=== PATIENT | male | born 1955 | race Caucasian/White ===

== ENCOUNTER 2016-09-02 14:34 | Emergency (ER) | payer OTHER ==
[2016-09-02] MEDS ORDERED: KETOROLAC 30 MG/ML VIAL (J1885) As Ordered ONE (15:15)
[2016-09-02] MEDS ORDERED: METHOCARBAMOL 1,000 MG/10 ML VIAL (J2800) As Ordered ONE (15:15)
--- NOTE | 2016-09-02 16:15 | EDDOCDS ---
Physician Documentation [facility] Name: Arin Momin Age: 60 yrs Sex: Male : 1955 Arrival Date: 09/02/2016 Time: 14:34 Bed PR Private MD: NO PRIMARY PHYSICIAN, . Disposition: 09/02/16 16:07 Discharged to Home/Self Care. Impression: Intervertebral disc stenosis of neural canal of lumbar region, Low back pain, Other intervertebral disc degeneration, lumbosacral region. - Condition is Stable. - Discharge Instructions: Degenerative Disk Disease, Back Pain, Adult, Oqwf-ck-Asde. - Prescriptions for Robaxin- 750 750 mg Oral Tablet - take 1 tablet by ORAL route every 6 hours As needed; 40 tablet. etodolac 200 mg Oral Capsule - take 1 capsule by ORAL route 3 times per day; 30 capsule. - Medication Reconciliation, Local Pharmacy Hours form. - Follow up: Orthopaedics, [facility]; When: Call to arrange an appointment; Reason: Further diagnostic work-up, Recheck today's complaints, Continuance of care. - Problem is new. - Symptoms have improved. Historical: - Allergies: PENICILLINS (Rash); - Home Meds: 1. none - PMHx: none; - PSHx: none; - Social history: Smoking status: Patient uses tobacco products, current some day smoker. No barriers to communication noted, The patient speaks fluent Sinhala. - Family history: Not pertinent. - : The pt / caregiver states he / she is not on anticoagulants. Home medication list is obtained from the patient. - Exposure Risk Screening:: None identified. Vital Signs: 09/02 14:37 BP 114 / 77; Pulse 89; Resp 18 S; Temp 95.6(T); Pulse Ox 95% on R/A; Weight 122.47 kg / gr2 270 lbs (R); Height 6 ft. 2 in. (187.96 cm) (R); Pain 9/10; 16:07 BP 119 / 75; Pulse 89; Resp 18; Temp 98.2(T); Pulse Ox 94% on R/A; Pain 8/10; nb2 14:37 Body Mass Index 34.67 (122.47 kg, 187.96 cm) gr2 MDM: 15:02 Financial registration complete. lg 15:10 ketorolac 30 mg IM once ordered. btw 15:10 Robaxin 250 mg IM once ordered. btw 15:11 CT Spine, Lumbar W/o Contrast Ordered. [facility] 15:33 [facility] Payment Agreement was scanned into [employer] and attached to record. lg Administered Medications: 15:21 Drug: ketorolac 30 mg [ketorolac 30 mg/mL (1 mL) injection solution (1 mL)] Route: IM; js13 Site: left deltoid; 16:12 Follow up: Response: Pain is decreased dls 15:22 Drug: Robaxin 250 mg [Robaxin 100 mg/mL injection solution (2.5 mL)] Route: IM; Site: js13 right deltoid; 16:12 Follow up: Response: Pain is decreased dls Signatures: Dispatcher [employer] EDLA Roberta Giles, RN RN dls Daren Bass, Reg Reg lg Don Griffin PA PA btw Vickie Maxwell RN RN jc4 Vickie Hodge RN RN js13 The chart was reviewed and I authenticate all verbal orders and agree with the evaluation and treatment provided.Attachments: 15:33 [facility] Payment Agreement lg MTDD
--- NOTE | 2016-09-02 16:15 | EDDOCDS ---
Nurse's Notes [facility] Name: Arin Momin Age: 60 yrs Sex: Male : 1955 Arrival Date: 09/02/2016 Time: 14:34 Bed PR Private MD: NO PRIMARY PHYSICIAN, . Diagnosis: Intervertebral disc stenosis of neural canal of lumbar region;Low back pain;Other intervertebral disc degeneration, lumbosacral region Presentation: 09/02 14:42 Presenting complaint: Patient states: "I've been going to a chiropractor for my back, jc4 but I slipped and fell on 08/31 and my back pain became worse last night". Acute neurological deficits are not present. Mechanism of Injury: Fall from standing position. Adult Sepsis Screening: The patient does not have new or worsening altered mentation. Patient's respiratory rate is less than 22. Systolic blood pressure is greater than 100. Patient has a qSOFA score of 0- Negative Sepsis Screen. Suicide/Homicide risk assessment- the patient denies having any suicidal and/or homicidal ideations and does not present with any other emotional, behavioral or mental health complaints. Status: Patient is not a assistant service manager or dependent. Transition of care: patient was not received from another setting of care. 14:42 Acuity: GERSON Level 4 jc4 14:42 Method Of Arrival: Walkin/Carried/Asstd jc4 Triage Assessment: 14:44 General: Appears in no apparent distress. Musculoskeletal: Reports pain in back jc4 radiation to buttocks and bilateral legs. 14:44 Pain: Pain currently is 9 out of 10 on a pain scale. Pt Declines HIV testing. jc4 Historical: - Allergies: PENICILLINS (Rash); - Home Meds: 1. none - PMHx: none; - PSHx: none; - Social history: Smoking status: Patient uses tobacco products, current some day smoker. No barriers to communication noted, The patient speaks fluent Liberian. - Family history: Not pertinent. - : The pt / caregiver states he / she is not on anticoagulants. Home medication list is obtained from the patient. - Exposure Risk Screening:: None identified. Screenin:01 Screening information is obtained from the patient. Fall risk: No risks identified. js13 Assistance ADL's: requires no assistance with activities of daily living. Abuse/DV Screen: The patient / caregiver reports he/she is: not in a situation that causes fear, pain or injury. Nutritional screening: No deficits noted. Advance Directives: There is no active DNR order. home support is adequate. Assessment: 16:11 General: Appears uncomfortable, Behavior is cooperative. Awake, alert, oriented. Skin dls warm and dry. Moves all extremities. Bilateral breath sounds clear. Respirations unlabored. Abdomen soft, non-tender. No apparent distress. The patient / caregiver is instructed regarding the plan of care and ED course. Vital Signs: 14:37 BP 114 / 77; Pulse 89; Resp 18 S; Temp 95.6(T); Pulse Ox 95% on R/A; Weight 122.47 kg gr2 (R); Height 6 ft. 2 in. (187.96 cm) (R); Pain 9/10; 16:07 BP 119 / 75; Pulse 89; Resp 18; Temp 98.2(T); Pulse Ox 94% on R/A; Pain 8/10; nb2 14:37 Body Mass Index 34.67 (122.47 kg, 187.96 cm) gr2 Vitals: 14:37 Log In Time: September 02, 2016 at 14:37. gr2 ED Course: 14:35 Patient visited by Benjie Bateman. gr2 14:35 Patient moved to Waiting gr2 14:36 NO PRIMARY PHYSICIAN, . is Private Physician. gr2 14:38 Patient visited by Benjie Bateman. gr2 14:38 Patient moved to Pre RCE gr2 14:43 Triage Initiated jc4 14:46 Patient moved to Triage 1 dem1 14:49 Don Griffin PA is PHCP. btw 14:49 Sarai Diehl MD is Attending Physician. btw 15:01 Patient visited by Don Griffin PA. btw 15:01 The patient / caregiver is instructed regarding the plan of care and ED course. js13 15:01 No IV's were initiated during this patient's visit. No procedures done that require js13 assistance. 15:22 Patient moved to TR4 js13 15:33 [facility] Payment Agreement was scanned into [employer] and attached to record. lg 15:57 Patient moved to PR2 / 26 dls 16:02 Patient visited by Roberta Giles RN. dls [facility]. btw 16:08 Patient visited by Sherri Berman. nb2 16:14 Patient has correct armband on for positive identification. Bed in low position. Call dls light in reach. Administered Medications: 15:21 Drug: ketorolac 30 mg [ketorolac 30 mg/mL (1 mL) injection solution (1 mL)] Route: IM; js13 Site: left deltoid; 16:12 Follow up: Response: Pain is decreased dls 15:22 Drug: Robaxin 250 mg [Robaxin 100 mg/mL injection solution (2.5 mL)] Route: IM; Site: js13 right deltoid; 16:12 Follow up: Response: Pain is decreased dls Order Results: There are currently no results for this order. Outcome: 16:07 Discharge ordered by Provider. btw 16:12 The following High Risk Discharge criteria are identified: None. Discharged to home dls ambulatory. Condition: stable Condition: improved. Discharge instructions given to patient, Instructed on discharge instructions, follow up and referral plans. medication usage, Demonstrated understanding of instructions, medications, Pt was receptive of discharge instructions/ teaching. No special radiology studies were completed. 16:13 Discharge Assessment: Patient awake, alert and oriented x 3. No cognitive and/or dls functional deficits noted. Patient verbalized understanding of disposition instructions. patient administered narcotics - no. The following High Risk Discharge criteria are identified: None. Discharged to. Property sent home with patient. 16:14 Patient left the ED. dls Signatures: Roberta Giles RN RN dls Daren Bass, Ru Reg lg Don Griffin, INGRID PA btw Vickie Maxwell, PAMELLA RN jc4 Steve Bob Jennifer, RN RN js13 Benjie Bateman gr2 Sherri Berman nb2 MTDD
--- NOTE | 2016-09-02 17:24 | REP ---
CT study of the lumbar spine without contrast: History: Trauma. Technique: Helical scanning is acquired. 4 mm contiguous axial images are generated and viewed at bone and soft-tissue window settings. Coronal and sagittal multiplanar re-formation images are generated and reviewed. CT findings: Lumbar vertebral body heights are preserved. No fracture or collapse is seen. No malalignment is seen. There is advanced degenerative disc disease at L5- S1 with disc space narrowing and disc space calcification. Posterior disc bulging and osteophyte formation is seen. There is bony neural foraminal narrowing on the left at L5-S1. At L4-5, there is moderate central canal stenosis due to developmentally small canal and some disc bulging and facet hypertrophy. At L3-4, there is also central canal stenosis mild to moderate in degree. No disc herniation is seen. At L2-3, L1-2, and T12-L1, no significant abnormality is noted. No transverse process or other posterior element fracture is seen. Impression: Degenerative disc and facet changes at L4-5 and L5-S1. Central canal stenosis at L4-5 and L3-4. Diffuse disc bulging at L5-S1 and neural foraminal narrowing on the left . No fracture or collapse seen. Signed by Kurt Samuels MD 09/02/2016 05:35 P
--- NOTE | 2016-09-05 11:22 | EDDOCDS ---
Physician Documentation [facility] Name: Arin Momin Age: 60 yrs Sex: Male : 1955 Arrival Date: 09/02/2016 Time: 14:34 Bed PR Private MD: NO PRIMARY PHYSICIAN, . Disposition: 09/02/16 16:07 Discharged to Home/Self Care. Impression: Intervertebral disc stenosis of neural canal of lumbar region, Low back pain, Other intervertebral disc degeneration, lumbosacral region. - Condition is Stable. - Discharge Instructions: Degenerative Disk Disease, Back Pain, Adult, Nlgv-ly-Odru. - Prescriptions for Robaxin- 750 750 mg Oral Tablet - take 1 tablet by ORAL route every 6 hours As needed; 40 tablet. etodolac 200 mg Oral Capsule - take 1 capsule by ORAL route 3 times per day; 30 capsule. - Medication Reconciliation, Local Pharmacy Hours form. - Follow up: Orthopaedics, [facility]; When: Call to arrange an appointment; Reason: Further diagnostic work-up, Recheck today's complaints, Continuance of care. - Problem is new. - Symptoms have improved. Historical: - Allergies: PENICILLINS (Rash); - Home Meds: 1. none - PMHx: none; - PSHx: none; - Social history: Smoking status: Patient uses tobacco products, current some day smoker. No barriers to communication noted, The patient speaks fluent German. - Family history: Not pertinent. - : The pt / caregiver states he / she is not on anticoagulants. Home medication list is obtained from the patient. - Exposure Risk Screening:: None identified. Vital Signs: 09/02 14:37 BP 114 / 77; Pulse 89; Resp 18 S; Temp 95.6(T); Pulse Ox 95% on R/A; Weight 122.47 kg / gr2 270 lbs (R); Height 6 ft. 2 in. (187.96 cm) (R); Pain 9/10; 16:07 BP 119 / 75; Pulse 89; Resp 18; Temp 98.2(T); Pulse Ox 94% on R/A; Pain 8/10; nb2 14:37 Body Mass Index 34.67 (122.47 kg, 187.96 cm) gr2 MDM: 15:02 Financial registration complete. lg 15:10 ketorolac 30 mg IM once ordered. btw 15:10 Robaxin 250 mg IM once ordered. btw 15:11 CT Spine, Lumbar W/o Contrast Ordered. EDMS 15:33 [facility] Payment Agreement was scanned into [email or web address] and attached to record. lg 20:53 T-Sheet-- Draft Copy was scanned into [email or web address] and attached to record. klr Administered Medications: 15:21 Drug: ketorolac 30 mg [ketorolac 30 mg/mL (1 mL) injection solution (1 mL)] Route: IM; js13 Site: left deltoid; 16:12 Follow up: Response: Pain is decreased dls 15:22 Drug: Robaxin 250 mg [Robaxin 100 mg/mL injection solution (2.5 mL)] Route: IM; Site: js13 right deltoid; 16:12 Follow up: Response: Pain is decreased dls Signatures: Dispatcher [employer] EDMS Roberta Giles RN RN dls Daren Bass, Ru Reg lg Don Griffin PA PA btw Vickie Maxwell RN RN jc4 Vickie Hodge RN RN js13 Alexandria Huerta klr The chart was reviewed and I authenticate all verbal orders and agree with the evaluation and treatment provided.Attachments: 15:33 [facility] Payment Agreement lg 20:53 T-Sheet-- Draft Copy klr Chart Complete MTDD
--- NOTE | 2016-09-05 11:22 | EDDOCDS ---
Physician Documentation [facility] Name: Arin Momin Age: 60 yrs Sex: Male : 1955 Arrival Date: 09/02/2016 Time: 14:34 Bed PR Private MD: NO PRIMARY PHYSICIAN, . Disposition: 09/02/16 16:07 Discharged to Home/Self Care. Impression: Intervertebral disc stenosis of neural canal of lumbar region, Low back pain, Other intervertebral disc degeneration, lumbosacral region. - Condition is Stable. - Discharge Instructions: Degenerative Disk Disease, Back Pain, Adult, [id number]-nb-Jmtc. - Prescriptions for Robaxin- 750 750 mg Oral Tablet - take 1 tablet by ORAL route every 6 hours As needed; 40 tablet. etodolac 200 mg Oral Capsule - take 1 capsule by ORAL route 3 times per day; 30 capsule. - Medication Reconciliation, Local Pharmacy Hours form. - Follow up: Orthopaedics, [facility]; When: Call to arrange an appointment; Reason: Further diagnostic work-up, Recheck today's complaints, Continuance of care. - Problem is new. - Symptoms have improved. Historical: - Allergies: PENICILLINS (Rash); - Home Meds: 1. none - PMHx: none; - PSHx: none; - Social history: Smoking status: Patient uses tobacco products, current some day smoker. No barriers to communication noted, The patient speaks fluent Latvian. - Family history: Not pertinent. - : The pt / caregiver states he / she is not on anticoagulants. Home medication list is obtained from the patient. - Exposure Risk Screening:: None identified. Vital Signs: 09/02 14:37 BP 114 / 77; Pulse 89; Resp 18 S; Temp 95.6(T); Pulse Ox 95% on R/A; Weight 122.47 kg / gr2 270 lbs (R); Height 6 ft. 2 in. (187.96 cm) (R); Pain 9/10; 16:07 BP 119 / 75; Pulse 89; Resp 18; Temp 98.2(T); Pulse Ox 94% on R/A; Pain 8/10; nb2 14:37 Body Mass Index 34.67 (122.47 kg, 187.96 cm) gr2 MDM: 15:02 Financial registration complete. lg 15:10 ketorolac 30 mg IM once ordered. btw 15:10 Robaxin 250 mg IM once ordered. btw 15:11 CT Spine, Lumbar W/o Contrast Ordered. EDMS 15:33 [facility] Payment Agreement was scanned into [employer] and attached to record. lg 20:53 T-Sheet-- Draft Copy was scanned into [employer] and attached to record. klr Administered Medications: 15:21 Drug: ketorolac 30 mg [ketorolac 30 mg/mL (1 mL) injection solution (1 mL)] Route: IM; js13 Site: left deltoid; 16:12 Follow up: Response: Pain is decreased dls 15:22 Drug: Robaxin 250 mg [Robaxin 100 mg/mL injection solution (2.5 mL)] Route: IM; Site: js13 right deltoid; 16:12 Follow up: Response: Pain is decreased dls Signatures: Dispatcher [employer] EDMS Roberta Giles RN RN dls Daren Bass, Ru Reg lg Don Griffin PA PA btw Vickie Maxwell RN RN jc4 Vickie Hodge RN RN js13 Alexandria Huerta klr The chart was reviewed and I authenticate all verbal orders and agree with the evaluation and treatment provided.Attachments: 15:33 [facility] Payment Agreement lg 20:53 T-Sheet-- Draft Copy klr Chart Complete MTDD
--- NOTE | 2016-09-05 11:22 | EDDOCDS ---
Nurse's Notes [facility] Name: Arin Momin Age: 60 yrs Sex: Male : 1955 Arrival Date: 09/02/2016 Time: 14:34 Bed PR Private MD: NO PRIMARY PHYSICIAN, . Diagnosis: Intervertebral disc stenosis of neural canal of lumbar region;Low back pain;Other intervertebral disc degeneration, lumbosacral region Presentation: 09/02 14:42 Presenting complaint: Patient states: "I've been going to a chiropractor for my back, jc4 but I slipped and fell on 08/31 and my back pain became worse last night". Acute neurological deficits are not present. Mechanism of Injury: Fall from standing position. Adult Sepsis Screening: The patient does not have new or worsening altered mentation. Patient's respiratory rate is less than 22. Systolic blood pressure is greater than 100. Patient has a qSOFA score of 0- Negative Sepsis Screen. Suicide/Homicide risk assessment- the patient denies having any suicidal and/or homicidal ideations and does not present with any other emotional, behavioral or mental health complaints. Status: Patient is not a custodial services manager or dependent. Transition of care: patient was not received from another setting of care. 14:42 Acuity: GERSON Level 4 jc4 14:42 Method Of Arrival: Walkin/Carried/Asstd jc4 Triage Assessment: 14:44 General: Appears in no apparent distress. Musculoskeletal: Reports pain in back jc4 radiation to buttocks and bilateral legs. 14:44 Pain: Pain currently is 9 out of 10 on a pain scale. Pt Declines HIV testing. jc4 Historical: - Allergies: PENICILLINS (Rash); - Home Meds: 1. none - PMHx: none; - PSHx: none; - Social history: Smoking status: Patient uses tobacco products, current some day smoker. No barriers to communication noted, The patient speaks fluent Ukrainian. - Family history: Not pertinent. - : The pt / caregiver states he / she is not on anticoagulants. Home medication list is obtained from the patient. - Exposure Risk Screening:: None identified. Screenin:01 Screening information is obtained from the patient. Fall risk: No risks identified. js13 Assistance ADL's: requires no assistance with activities of daily living. Abuse/DV Screen: The patient / caregiver reports he/she is: not in a situation that causes fear, pain or injury. Nutritional screening: No deficits noted. Advance Directives: There is no active DNR order. home support is adequate. Assessment: 16:11 General: Appears uncomfortable, Behavior is cooperative. Awake, alert, oriented. Skin dls warm and dry. Moves all extremities. Bilateral breath sounds clear. Respirations unlabored. Abdomen soft, non-tender. No apparent distress. The patient / caregiver is instructed regarding the plan of care and ED course. Vital Signs: 14:37 BP 114 / 77; Pulse 89; Resp 18 S; Temp 95.6(T); Pulse Ox 95% on R/A; Weight 122.47 kg gr2 (R); Height 6 ft. 2 in. (187.96 cm) (R); Pain 9/10; 16:07 BP 119 / 75; Pulse 89; Resp 18; Temp 98.2(T); Pulse Ox 94% on R/A; Pain 8/10; nb2 14:37 Body Mass Index 34.67 (122.47 kg, 187.96 cm) gr2 Vitals: 14:37 Log In Time: September 02, 2016 at 14:37. gr2 ED Course: 14:35 Patient visited by Benjie Bateman. gr2 14:35 Patient moved to Waiting gr2 14:36 NO PRIMARY PHYSICIAN, . is Private Physician. gr2 14:38 Patient visited by Benjie Bateman. gr2 14:38 Patient moved to Pre RCE gr2 14:43 Triage Initiated jc4 14:46 Patient moved to Triage 1 dem1 14:49 Don Griffin PA is PHCP. btw 14:49 Sarai Diehl MD is Attending Physician. btw 15:01 Patient visited by Don Griffin PA. btw 15:01 The patient / caregiver is instructed regarding the plan of care and ED course. js13 15:01 No IV's were initiated during this patient's visit. No procedures done that require js13 assistance. 15:22 Patient moved to TR4 js13 15:33 [facility] Payment Agreement was scanned into [employer] and attached to record. lg 15:57 Patient moved to PR2 / 26 dls 16:02 Patient visited by Roberta Giles RN. dls [facility] btw 16:08 Patient visited by Sherri Berman. nb2 16:14 Patient has correct armband on for positive identification. Bed in low position. Call dls light in reach. 17:51 CT Spine, Lumbar W/o Contrast Returned. EDMS 20:53 T-Sheet-- Draft Copy was scanned into [employer] and attached to record. klr Administered Medications: 15:21 Drug: ketorolac 30 mg [ketorolac 30 mg/mL (1 mL) injection solution (1 mL)] Route: IM; js13 Site: left deltoid; 16:12 Follow up: Response: Pain is decreased dls 15:22 Drug: Robaxin 250 mg [Robaxin 100 mg/mL injection solution (2.5 mL)] Route: IM; Site: js13 right deltoid; 16:12 Follow up: Response: Pain is decreased dls Order Results: Radiology Order: CT Spine, Lumbar W/o Contrast Test: CT Spine, Lumbar W/o Contrast REASON FOR EXAMINATION: Trauma; CT study of the lumbar spine without contrast:; ; History: Trauma.; ; Technique: Helical scanning is acquired. 4 mm contiguous axial images are; generated and viewed at bone and soft-tissue window settings. Coronal and; sagittal multiplanar re-formation images are generated and reviewed.; ; CT findings: Lumbar vertebral body heights are preserved. No fracture or; collapse is seen. No malalignment is seen. There is advanced degenerative disc; disease at L5- S1 with disc space narrowing and disc space calcification.; Posterior disc bulging and osteophyte formation is seen. There is bony neural; foraminal narrowing on the left at L5-S1.; ; At L4-5, there is moderate central canal stenosis due to developmentally small; canal and some disc bulging and facet hypertrophy.; ; At L3-4, there is also central canal stenosis mild to moderate in degree. No; disc herniation is seen.; ; At L2-3, L1-2, and T12-L1, no significant abnormality is noted. No transverse; process or other posterior element fracture is seen.; ; Impression:; ; Degenerative disc and facet changes at L4-5 and L5-S1. Central canal stenosis at; L4-5 and L3-4. Diffuse disc bulging at L5-S1 and neural foraminal narrowing on; the left . No fracture or collapse seen.; ; ; Signed by; Kurt Samuels MD 09/02/2016 05:35 P; Outcome: 16:07 Discharge ordered by Provider. btw 16:12 The following High Risk Discharge criteria are identified: None. Discharged to home dls ambulatory. Condition: stable Condition: improved. Discharge instructions given to patient, Instructed on discharge instructions, follow up and referral plans. medication usage, Demonstrated understanding of instructions, medications, Pt was receptive of discharge instructions/ teaching. No special radiology studies were completed. 16:13 Discharge Assessment: Patient awake, alert and oriented x 3. No cognitive and/or dls functional deficits noted. Patient verbalized understanding of disposition instructions. patient administered narcotics - no. The following High Risk Discharge criteria are identified: None. Discharged to. Property sent home with patient. 16:14 Patient left the ED. dls Signatures: Dispatcher [employer] EDMS Roberta Giles, RN RN dls Daren Bass, Reg Reg lg Don Griffin, INGRID PA btw Vickie Maxwell, PAMELLA RN jc4 Steve Bob Jennifer,PAMELLA RN js13 Benjie Bateman2 Alexandria Huerta Nicole nb2 Chart Complete MTDKasie
== END 2016-09-02 16:14 | disposition home or self-care (01) ==
LOC: M ED 14:34
DX: M51.37 Other intervertebral disc degeneration, lumbosacral region (principal); M48.07 Spinal stenosis, lumbosacral region; Z91.81 History of falling; M54.9 Dorsalgia, unspecified; G89.29 Other chronic pain; F17.210 Nicotine dependence, cigarettes, uncomplicated; Z88.0 Allergy status to penicillin
CPT/HCPCS: 72131; 96372; 99283; J1885; J2800

== ENCOUNTER → 2017-06-15 | Outpatient (CLI) | payer OTHER ==
[2017-06-15 16:51] LABS: MEAN CORPUSCULAR HGB CONC 34.7 g/dl (32.0-36.5); MEAN CORPUSCULAR VOLUME 95.2 fl (80.0-96.0); PLATELET COUNT, AUTOMATED 225 10^3/uL (150-450); RED CELL DISTRIBUTION WIDTH 13.2 % (11.5-14.5); WHITE BLOOD COUNT 10.8 10^3/uL (4.0-10.0)
[2017-06-15 17:06] LABS: ALBUMIN/GLOBULIN RATIO 1.11 (1.00-1.93); ALKALINE PHOSPHATASE 124 U/L (45-117); ALT/SGPT 82 U/L (12-78); ANION GAP 7 MEQ/L (8-16); AST/SGOT 43 U/L (15-37); BILIRUBIN,TOTAL 1.2 MG/DL (0.2-1.0); BLOOD UREA NITROGEN 14 MG/DL (7-18); CALCIUM LEVEL 9.4 MG/DL (8.8-10.2); CARBON DIOXIDE LEVEL 29 MEQ/L (21-32); CHLORIDE LEVEL 103 MEQ/L (98-107); CHOLESTEROL LEVEL 195 MG/DL (<200); CREATININE FOR GFR 1.21 MG/DL (0.70-1.30); GLOMERULAR FILTRATION RATE > 60.0 (>49); GLUCOSE, FASTING 137 MG/DL (80-110); POTASSIUM SERUM 4.1 MEQ/L (3.5-5.1); SODIUM LEVEL 139 MEQ/L (136-145); THYROXINE (T4) 8.9 UG/DL (4.5-12.0); TOTAL PROTEIN 7.6 GM/DL (6.4-8.2); TRIGLYCERIDES LEVEL 302 MG/DL (<150)
--- NOTE | 2017-06-15 17:43 | REP ---
CT of the abdomen pelvis without IV and oral contrast: There are no comparisons. The visualized lung lewis are unremarkable. The hepatic parenchyma is hypodense compatible with hepato steatosis. There are gallbladder calculi with rim calcification. The gallbladder is otherwise unremarkable. The pancreas and spleen are normal size and unremarkable. The study is insensitive for gastric masses. No gastric masses are identified. The adrenals and kidneys are unremarkable except for a right renal upper pole cyst measuring approximate 3 cm in diameter. The abdominal aorta is unremarkable. There is no bowel distension. Mesentery is unremarkable. Pelvis: There is no ascites or adenopathy. The pelvic bowel loops are unremarkable. The bladder is unremarkable. There is a fat-containing umbilical hernia measuring 5.9 cm in diameter. The peritoneal defect measures 4.6 cm in diameter. Impression: There is a fat-containing umbilical hernia. There is hepato steatosis. There is cholelithiasis. No gastric masses are identified, however, CT is insensitive. Otherwise, negative CT of the abdomen and pelvis except for a right renal cyst. Signed by Jose Villalpando MD 06/15/2017 05:34 P
--- NOTE | 2017-06-15 17:50 | REP ---
PA and lateral chest: The lung lewis are clear. The cardiac size is normal The mickey, mediastinum, and bony thorax are unremarkable. Impression: Negative PA and lateral chest. Signed by Jose Villalpando MD 06/15/2017 05:41 P
--- NOTE | 2017-06-15 20:15 | ECGEPIP ---
Stationary ECG Study [facility] Test Date: 2017-06-15 Pat Name: YESSENIA PAUL Department: Room: - Gender: M Entry Level Marketing Representative: eren : 1955 Requested By: Jessie Avila Order Number: [id number] Reading MD: Cong Jones Measurements Intervals [place] Rate: 87 P: 6 NE: 112 QRS: -11 QRSD: 94 T: 23 QT: 372 QTc: 450 Interpretive Statements SINUS RHYTHM WITH SHORT NE INTERVAL No prior. Electronically Signed On 06-15-2017 20:15:08 EDT by Cong Jones
== END ==
LOC: M LAB 15:39
PROVIDERS: ATTEND Family Medicine
DX: R19.07 Generalized intra-abdominal and pelvic swelling, mass and lump (principal); I10 Essential (primary) hypertension; J44.9 Chronic obstructive pulmonary disease, unspecified; K42.9 Umbilical hernia without obstruction or gangrene; K76.0 Fatty (change of) liver, not elsewhere classified; K80.20 Calculus of gallbladder without cholecystitis without obstruction; N28.1 Cyst of kidney, acquired

== ENCOUNTER → 2017-08-01 | Outpatient (CLI) | payer OTHER ==
[~2017-08-01] MED LIST: ETOD200C31 PO; LISI10TA4 PO; METF500T13 PO; ROBA750T4 PO
[2017-08-01 09:40] LABS: MEAN CORPUSCULAR HEMOGLOBIN 33.5 pg (27.0-33.0); MEAN CORPUSCULAR HGB CONC 34.8 g/dl (32.0-36.5); MEAN CORPUSCULAR VOLUME 96.1 fl (80.0-96.0); PLATELET COUNT, AUTOMATED 217 10^3/uL (150-450); RED CELL DISTRIBUTION WIDTH 13.2 % (11.5-14.5); WHITE BLOOD COUNT 12.1 10^3/uL (4.0-10.0)
[2017-08-01 10:16] LABS: ALBUMIN 3.6 GM/DL (3.2-5.2); ALKALINE PHOSPHATASE 115 U/L (45-117); ALT/SGPT 63 U/L (12-78); ANION GAP 9 MEQ/L (8-16); AST/SGOT 30 U/L (7-37); BILIRUBIN,TOTAL 0.6 MG/DL (0.2-1.0); BLOOD UREA NITROGEN 19 MG/DL (7-18); CALCIUM LEVEL 8.7 MG/DL (8.8-10.2); CARBON DIOXIDE LEVEL 27 MEQ/L (21-32); CHLORIDE LEVEL 104 MEQ/L (98-107); CHOLESTEROL LEVEL 185 MG/DL (<200); CREATININE FOR GFR 1.15 MG/DL (0.70-1.30); GLOMERULAR FILTRATION RATE > 60.0 (>49); GLUCOSE, FASTING 193 MG/DL (80-110); POTASSIUM SERUM 4.1 MEQ/L (3.5-5.1); SODIUM LEVEL 140 MEQ/L (136-145); TOTAL PROTEIN 7.2 GM/DL (6.4-8.2); TRIGLYCERIDES LEVEL 376 MG/DL (<150)
[2017-08-01 10:21] LABS: INR 1.03
== END ==
LOC: M LAB 08:48
PROVIDERS: ATTEND Family Medicine
DX: I10 Essential (primary) hypertension (principal)

== ENCOUNTER 2017-08-17 07:40 | Day surgery (SDC) | payer OTHER ==
[~2017-08-17] VITALS: Ht 185.4 cm; Wt 125.2 kg
[2017-08-17] MEDS ORDERED: LR 1,000 ML IV ONE (08:00)
[2017-08-17] MEDS ORDERED: BUPIVACAINE HCL 0.25% 30 ML VIAL As Ordered ONE ×2 (08:33→09:41)
[2017-08-17] MEDS ORDERED: ROCURONIUM BROMIDE 50 MG/5 ML VIAL As Ordered ONE (08:48)
[2017-08-17] MEDS ORDERED: PROPOFOL 200 MG/20 ML VIAL As Ordered ONE ×2 (08:48→08:53)
[2017-08-17] MEDS ORDERED: LIDOCAINE 2% INJ 100 MG/5 ML SDV (FOR ANES.) As Ordered ONE (08:53)
[2017-08-17] MEDS ORDERED: MIDAZOLAM INJ 2 MG/2 ML VIAL (J2250) As Ordered ONE (08:57)
[2017-08-17] MEDS ORDERED: fentaNYL 100 MCG/2 ML INJECTION (J3010) As Ordered ONE (08:58)
[2017-08-17] MEDS ORDERED: ALBUTEROL SULFATE 2.5 MG/0.5 ML INH NEB SOLN INH ONE (10:00)
[2017-08-17] MEDS ORDERED: HYDROmorphone HCL 2 MG/ML 1ML VIAL (J1170) As Ordered ONE (10:58)
[2017-08-17] MEDS ORDERED: SUGAMMADEX SODIUM 500 MG/5 ML VIAL (BRIDION) As Ordered ONE (12:21)
[2017-08-17] MEDS ORDERED: NORCO, ANEXSIA 5/325MG TABLET (HYDROcodone/ACETAMINOPHEN) PO PRN (13:15)
[2017-08-17] MEDS ORDERED: PERCOCET 5MG/325MG TAB PO PRN (13:45)
[2017-08-17] MEDS ORDERED: LR 1,000 ML IV SCH (13:45)
[2017-08-17] MEDS ORDERED: MEPERIDINE INJ 25 MG/ML VIAL (J2175) IV PRN (13:45)
[2017-08-17] MEDS ORDERED: ONDANSETRON 4MG/2ML VIAL (J2405) IV PRN (13:45)
[2017-08-17] MEDS ORDERED: fentaNYL 100 MCG/2 ML INJECTION (J3010) IV PRN (13:45)
[2017-08-17] MEDS ORDERED: KETOROLAC 30 MG/ML VIAL (J1885) IV PRN (13:45)
[2017-08-17] MEDS ORDERED: HumaLOG INSULIN (NovoLOG) PER UNIT As Ordered ONE (14:18)
[2017-08-17] MEDS ORDERED: HumaLOG INSULIN (NovoLOG) PER UNIT SC ONE (14:30)
[2017-08-17 17:15] VITALS: BP 125/80
--- NOTE | 2017-08-21 15:43 | RO ---
DATE OF PROCEDURE: 08/15/2017 PREOPERATIVE DIAGNOSIS: Umbilical hernia. POSTOPERATIVE DIAGNOSIS: Umbilical hernia. PROCEDURE PERFORMED: Laparoscopic repair of umbilical hernia with 15 cm Parietex patch. SURGEON: Dr. Avendano SAIL CUTTER: Dr. Chen ANESTHESIA: General. INDICATIONS FOR THE PROCEDURE: Patient is a 61-year-old man with an at least several year history of an umbilical hernia, which has enlarged and become somewhat more uncomfortable. He is now for a laparoscopic repair of his umbilical hernia. OPERATIVE PROCEDURE: The patient was placed under general endotracheal anesthesia. The patient's abdomen was prepped and draped in a sterile fashion. Initial entry was made in the right midabdomen at about the level of the umbilicus. 0.25% Marcaine was infiltrated at the trocar sites. A short incision was made and a Veress needle was inserted. After positive hanging drop test, the abdomen was insufflated with carbon dioxide gas. After the abdomen was adequately insufflated, a 5-mm port was placed over 5 mm scope and this was advanced through the abdominal wall without difficulty. Initial examination showed two fronds of omentum that were adherent up into his somewhat lobulated umbilical hernia sac. Visualized loops of the small and large bowel appeared normal. The liver appeared somewhat pale in color with blunted edges consistent with some fatty infiltration of the liver. A second 5 mm trocar was placed in the right upper quadrant and a third was placed in the right lower quadrant. Then using a grasper and Harmonic scalpel, the omentum adherent into the hernia sac was freed. The abdominal wall was marked at the site of the hernia and the fascial defect was approximately 5 cm maximally. The fibrofatty tissue of the anterior abdominal wall was peeled away from the fascia extending superiorly to include a portion of the falciform ligament to provide a better anchorage for the mesh fixation. Likewise, the fibrofatty tissue along the anterior abdominal wall inferiorly was also dissected off of the abdominal wall. These portions of fat were set aside to be removed later. Once the abdominal wall was adequately exposed, an approximately 4 cm midline incision was made over the hernia bulge just above the umbilical dimple. The incision was deepened into the subcutaneous tissues and the hernia sac was dissected free from the surrounding fatty tissues. The sac was dissected down to the level of the fascia and then excised. The fragments of fatty tissue that had been dissected from the abdominal wall were recovered through the fascial defect and sent together with the hernia sac. The edges of the fascia were identified and at the inferior edge were somewhat freshened. A 15 cm Parietex patch reference code [id number] was selected. This was from lot number [id number]. This was marked at the center point and along the midline. Care was taken to place this into the abdomen with the nonadherent side facing the bowel. A #0 Ethibond suture was placed to close the midpoint of the fascial defect transversely. This suture incorporated a very small bite at the center point of the mesh and the mesh was then reduced into the abdomen and the suture tied down. The remainder of the fascial defect was then closed with additional sutures of #0 Ethibond. The abdomen was then reinflated to 8 mmHg. The laparoscope was placed. The mesh was flattened against the anterior abdominal wall and tacked securely in place using the secure strap tacker. The midline of the mesh was tacked in place. Then, the edges were affixed and additional tacks were placed in the more central portions of the mesh. Two 5 mm trocars were then placed on the left-hand side of the abdomen to facilitate fixation of the right half of the mesh. A second 25 tack SecureStrap device was then used to affix the right side of the mesh to the anterior abdominal wall. There was a small amount of bleeding with one of the tacks but this stopped spontaneously. A total of 50 tacks were utilized with excellent application of the mesh smoothly over the anterior abdominal wall. Final inspection showed no evidence of any bleeding. The abdomen was deflated and the trocars were all removed. The subcutaneous tissues at the umbilical incision were approximated with #3-0 Vicryl and the skin incisions were all closed with buried #5-0 Vicryl sutures and Steri-Strips. Light dressings were applied. The patient tolerated the procedure well without apparent complication. He was awakened in the operating room, extubated and moved to the recovery room in stable condition. ABNER
== END 2017-08-17 18:20 | disposition home or self-care (01) ==
LOC: M SDC 07:40
PROVIDERS: ATTEND Surgery
DX: K42.9 Umbilical hernia without obstruction or gangrene (principal); I10 Essential (primary) hypertension; E11.9 Type 2 diabetes mellitus without complications; M12.9 Arthropathy, unspecified; M54.9 Dorsalgia, unspecified; R06.83 Snoring; G47.30 Sleep apnea, unspecified; E66.9 Obesity, unspecified; Z68.36 Body mass index [BMI] 36.0-36.9, adult; Z88.0 Allergy status to penicillin; Z79.899 Other long term (current) drug therapy; Z79.84 Long term (current) use of oral hypoglycemic drugs; Z72.0 Tobacco use
CPT/HCPCS: 49652; 88302; 94640; C1781

== ENCOUNTER → 2017-10-03 | Outpatient (CLI) | payer OTHER | LOC: M RAD 14:04 | DX: M47.896 Other spondylosis, lumbar region (principal) | CPT/HCPCS: 72148 ==

== ENCOUNTER → 2017-10-15 | Outpatient (CLI) | payer OTHER ==
[2017-10-15 13:38] LABS: HEMATOCRIT 52.8 % (42.0-52.0); HEMOGLOBIN 18.4 g/dl (14.0-18.0); MEAN CORPUSCULAR HEMOGLOBIN 32.8 pg (27.0-33.0); MEAN CORPUSCULAR HGB CONC 34.8 g/dl (32.0-36.5); MEAN CORPUSCULAR VOLUME 94.1 fl (80.0-96.0); PLATELET COUNT, AUTOMATED 222 10^3/uL (150-450); RED BLOOD COUNT 5.61 10^6/uL (4.30-6.10); RED CELL DISTRIBUTION WIDTH 13.1 % (11.5-14.5); WHITE BLOOD COUNT 11.4 10^3/uL (4.0-10.0)
[2017-10-15 13:56] LABS: ESTIMATED AVERAGE GLUCOSE 192 MG/DL (60-110); HEMOGLOBIN A1c 8.3 %
[2017-10-15 14:15] LABS: TESTOSTERONE 234 NG/DL (241-827)
[2017-10-15 14:25] LABS: ALBUMIN 3.7 GM/DL (3.2-5.2); ALBUMIN/GLOBULIN RATIO 0.97 (1.00-1.93); ALKALINE PHOSPHATASE 119 U/L (45-117); ALT/SGPT 74 U/L (12-78); ANION GAP 8 MEQ/L (8-16); AST/SGOT 33 U/L (7-37); BILIRUBIN,TOTAL 0.8 MG/DL (0.2-1.0); BLOOD UREA NITROGEN 20 MG/DL (7-18); CALCIUM LEVEL 8.9 MG/DL (8.8-10.2); CARBON DIOXIDE LEVEL 27 MEQ/L (21-32); CHLORIDE LEVEL 104 MEQ/L (98-107); CHOLESTEROL LEVEL 201 MG/DL (<200); CHOLESTEROL RISK RATIO 11.166 (<5); CREATININE FOR GFR 1.08 MG/DL (0.70-1.30); GLOMERULAR FILTRATION RATE > 60.0 (>49); GLUCOSE, FASTING 201 MG/DL (70-100); HDL CHOLESTEROL 18 MG/DL (>40); NON-HDL-C 183 MG/DL; POTASSIUM SERUM 4.3 MEQ/L (3.5-5.1); SODIUM LEVEL 139 MEQ/L (136-145); TOTAL PROTEIN 7.5 GM/DL (6.4-8.2); TRIGLYCERIDES LEVEL 468 MG/DL (<150)
== END ==
LOC: M LAB 12:20
DX: I10 Essential (primary) hypertension (principal)
CPT/HCPCS: 84403

== ENCOUNTER → 2018-01-30 | Outpatient (CLI) | payer OTHER ==
[2018-01-30 12:26] LABS: INR 1.06; PARTIAL THROMBOPLASTIN TIME 34.3 SECONDS (26.8-37.9); PROTHROMBIN TIME 13.9 SECONDS (12.4-14.5)
[2018-01-30 12:41] LABS: COLLAGEN EPINEPHRINE 103 SECONDS (74-162)
== END ==
LOC: M LAB 11:51
DX: M51.37 Other intervertebral disc degeneration, lumbosacral region (principal)
CPT/HCPCS: 85610

== ENCOUNTER → 2018-02-28 | Outpatient (CLI) | payer OTHER ==
[2018-02-28 14:00] LABS: PLATELET COUNT, AUTOMATED 214 10^3/uL (150-450)
== END ==
LOC: M LAB 13:30
DX: M51.37 Other intervertebral disc degeneration, lumbosacral region (principal)
CPT/HCPCS: 85049

== ENCOUNTER → 2018-10-24 | Outpatient (CLI) | payer OTHER ==
--- NOTE | 2018-10-25 08:24 | REP ---
MRI LUMBAR SPINE WITHOUT CONTRAST: HISTORY: Disc displacement. COMPARISON: 10/03/2017. Decreased signal intensity on T2-weighted images is present in the L3-4 through L5-S1 intervertebral discs. The discs are decreased in height. These findings are consistent with disc degeneration. There is no disc bulge or herniation at the L1-2 and L2-3 levels. The nerves exit the neural foramina without compression. A diffuse disc bulge is present at the L3-4 level. There is hypertrophy of the ligamenta flava and posterior articulating facets. These findings produce moderate central canal stenosis. The L3 nerves exit the neural foramina without compression. A diffuse disc bulge is present at the L4-5 level. There is hypertrophy of the ligamenta flava and posterior articulating facets. These findings produce moderate central canal stenosis. There is compression of the L4 nerves in the neural foramina. A diffuse disc bulge and small right paracentral disc protrusion with associated osteophyte formation are present at the L5-S1 level. There is minimal compression of the thecal sac and right S1 nerve as it exits the thecal sac. There is hypertrophy of the posterior articulating facets. There is compression of the L5 nerves in the neural foramina. The conus medullaris is normal in appearance terminating at the level of the T12-L1 intervertebral disc. Increased signal intensity on T2-weighted images is present in the endplates of the L5 and S1 vertebral bodies. This represents degenerative change. IMPRESSION: 1. Moderate central canal stenosis at the L3-4 and L4-5 levels secondary to disc bulge, ligamentous and facet hypertrophy. There is compression of the L4 nerves in the neural foramina. The left L4 nerve compression is a new finding. 2. Diffuse disc bulge and small right paracentral disc protrusion with associated osteophyte formation at the L5-S1 level with minimal compression of the thecal sac and right S1 nerve as it exits the thecal sac. There is compression of the L5 nerve in the neural foramina. There is no other significant change. Electronically Signed by Ruel Pedraza MD 10/25/2018 08:48 A
== END ==
LOC: M RAD 16:06
PROVIDERS: ATTEND Physician Assistant
DX: M51.27 Other intervertebral disc displacement, lumbosacral region (principal); M48.061 Spinal stenosis, lumbar region without neurogenic claudication

== ENCOUNTER → 2019-04-08 | Outpatient (CLI) | payer OTHER ==
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
== END ==
LOC: M PAIN 14:00
PROVIDERS: ATTEND Anesthesiology
DX: M79.18 Myalgia, other site (principal); G89.29 Other chronic pain; M51.16 Intervertebral disc disorders with radiculopathy, lumbar region; M51.17 Intervertebral disc disorders with radiculopathy, lumbosacral region; R60.0 Localized edema; I87.2 Venous insufficiency (chronic) (peripheral); E03.9 Hypothyroidism, unspecified; G62.9 Polyneuropathy, unspecified; F17.210 Nicotine dependence, cigarettes, uncomplicated; Z88.0 Allergy status to penicillin; E11.9 Type 2 diabetes mellitus without complications; Z79.899 Other long term (current) drug therapy

== ENCOUNTER → 2019-04-22 | Outpatient (CLI) | payer OTHER ==
[~2019-04-22] MED LIST changes: +BUPIVACAINE HCL 0.25% 10 ML VIAL As Ordered ONE; +BUPIVACAINE HCL 0.25% 30 ML VIAL As Ordered ONE; +TRIAMCINOLONE ACETONIDE SUSP 40 MG/ML VIAL (J3301) As Ordered ONE; +diazePAM 5 MG TAB As Ordered ONE; +oxyCODONE 5MG TAB As Ordered ONE
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
== END ==
LOC: M PAIN 10:15
PROVIDERS: ATTEND Anesthesiology
DX: G89.29 Other chronic pain (principal); M79.18 Myalgia, other site; M54.5 Low back pain; E03.9 Hypothyroidism, unspecified; F17.210 Nicotine dependence, cigarettes, uncomplicated; Z79.891 Long term (current) use of opiate analgesic; Z79.899 Other long term (current) drug therapy; Z88.0 Allergy status to penicillin
CPT/HCPCS: 20552; J3301

== ENCOUNTER → 2019-05-14 | Outpatient (CLI) | payer OTHER ==
[~2019-05-14] MED LIST changes: -BUPIVACAINE HCL 0.25% 10 ML VIAL As Ordered ONE; -BUPIVACAINE HCL 0.25% 30 ML VIAL As Ordered ONE; -TRIAMCINOLONE ACETONIDE SUSP 40 MG/ML VIAL (J3301) As Ordered ONE; -diazePAM 5 MG TAB As Ordered ONE; -oxyCODONE 5MG TAB As Ordered ONE
--- NOTE | 2019-05-16 01:14 | ECWPNPC ---
PATIENT NAME: YESSENIA PAUL : 1955 GENDER: MALE VISIT DATE: 05/14/2019 DISCHARGE DATE: 05/14/19 1140 VISIT LOCKED DATE TIME: PHYSICIAN: MARCO ANTONIO VERA RESOURCE: MARCO ANTONIO VERA REASON FOR APPOINTMENT 1. POST TPI HISTORY OF PRESENT ILLNESS HISTORY OF PRESENT ILLNESS: PAIN THE PATIENT DESCRIBES THE PAIN... 63-YEAR-OLD MALE IN FOR POST TPI FOLLOW-UP. HE FEELS THE PROCEDURE WORKED WELL RATED HIS PAIN PREPROCEDURE AT AN 8 OUT OF 10 AND POSTPROCEDURE AT A 3 OUT OF 10. HE RATES HIS PAIN CURRENTLY AT A 5 OUT OF 10 AND DESCRIBES IT ACHING, SHARP, AND STABBING. HE DOES ADMIT TO INCREASED PAIN IN HIS THORACIC AREA. FALL RISK SCREENING: SCREENING :NO FALLS REPORTED IN THE LAST YEAR CURRENT MEDICATIONS TAKING LEVOTHYROXINE SODIUM 150 MCG TABLET 1 TABLET ON AN EMPTY STOMACH IN THE MORNING ORALLY ONCE A DAY TAKING HYDROCODONE-ACETAMINOPHEN 7.5-325 MG TABLET 1 TABLET NEEDED ORALLY EVERY 6 HRS MDD 3 NOT-TAKING IBUPROFEN 800 MG TABLET 1 TABLET WITH FOOD OR MILK NEEDED ORALLY BID NOT-TAKING SILDENAFIL CITRATE 100 MG TABLET 1 TABLET NEEDED ORALLY ONCE A DAY NOT-TAKING CELECOXIB 200 MG CAPSULE 1 CAPSULE WITH FOOD ORALLY ONCE A DAY MEDICATION LIST REVIEWED AND RECONCILED WITH THE PATIENT PAST MEDICAL HISTORY DEGENARATIVE DISC DISEASE SPONDYLOSIS SPINAL STENOSIS HYPOTHYROID NEUROPATHY ALLERGIES PENICILLIN (FOR ALLERGIES USE ONLY) SURGICAL HISTORY HERNIA 12-17 EAR SURGERY 1958 TONSILS REMOVED 1961 FAMILY HISTORY FATHER: 38 YRS, DIAGNOSED WITH UNSPECIFIED HEART DISEASE MOTHER: 37 YRS, OTHER MALIGNANT NEOPLASM OF UNSPECIFIED SITE SIBLINGS: PT MOTHER FROM STOMACH CANCER. SOCIAL HISTORY GENERAL: TOBACCO USE ARE YOU A:CURRENT EVERY DAY SMOKER ADDITIONAL FINDINGS: TOBACCO USERLIGHT CIGARETTE SMOKER ((1-9 CIGS/DAY) SMOKING CESSATION INFORMATION GIVEN05/14/2019 EDUCATED PT REGARDING THE EFFECTS OF SMOKING AND ENCOURAGED PT TO QUIT. DS OTHERS AT HOME: NONE. EDUCATION LEVEL OF EDUCATION:COLLEGE DIET: REGULAR. LANGUAGE LANGUAGES SPOKEN:NEW ZEALANDER DOMESTIC VIOLENCE DO YOU FEEL SAFE IN YOUR ENVIRONMENT?YES RECREATIONAL DRUG USE DRUG USE?NO LEARNING BARRIERS / SPECIAL NEEDS BARRIERS TO LEARNING?NO HEARING IMPAIRED?NO VISION IMPAIRED?NO COGNITIVELY IMPAIRED?NO READINESS TO LEARN?YES PAIN CLINIC PFS, CLERGY, PUBLIC HEALTH REFERRALS WAS THE PROVIDER NOTIFIED OF ANY PERTINENT INFO?YES HAS THE PATIENT BEEN EDUCATED REGARDING HIS/HER PLAN OF CARE?YES HAS THE PATIENT BEEN EDUCATED REGARDING PAIN, THE RISK FOR PAIN, THE IMPORTANCE OF EFFECTIVE PAIN MANAGEMENT, AND THE PAIN ASSESSMENT PROCESS?YES LATEX QUESTIONNAIRE LATEX ALLERGY : HAVE YOU EVER DEVELOPED ANY TYPE OF REACTION AFTER HANDLING LATEX PRODUCTS SUCH RUBBER GLOVES, CONDOMS, DIAPHRAGMS, BALLOONS, SOCKS, OR UNDERWEAR?NO LATEX ALLERGY : HAVE YOU EVER DEVELOPED ANY TYPE OF REACTION DURING OR AFTER DENTAL APPOINTMENT, VAGINAL/RECTAL EXAMINATION, SURGICAL PROCEDURE, OR ANY OTHER EXPOSURE?NO DATE ASKED : 04/22/2019 LATEX RISK : HAVE YOU EVER HAD ANY DIFFICULTY BREATHING OR HIVES AFTER EATING OR HANDLING ANY FRUITS, OR VEGETABLES; SUCH KIWI, BANANAS, STONE FRUITS, OR CHESTNUTSNO LATEX RISK : DO YOU HAVE A PREVIOUS PERSONAL HISTORY OF MORE THAN NINE SURGERIES, SPINA BIFIDA, OR REPEATED CATHERIZATIONS? NO LATEX RISK : ARE YOU FREQUENTLY EXPOSED TO LATEX PRODUCTS IN YOUR OCCUPATION?NO CAFFEINE CAFFEINE USE?YES PEPSI DAILY ADVANCE DIRECTIVE ADVANCE DIRECTIVE DISCUSSED WITH PATIENT:YES PT DOES NOT HAVE ANY HCP AND DECLINES INFO AT THIS TIME MORAVIAN [id number] EPISCOPAL MARITAL STATUS: SINGLE. ALCOHOL SCREENING DID YOU HAVE A DRINK CONTAINING ALCOHOL IN THE PAST YEAR?NO POINTS0 INTERPRETATIONNEGATIVE OCCUPATION: RETIRED. REVIEWED WITH PT 04/08/19 1437 BV. HOSPITALIZATION/MAJOR DIAGNOSTIC PROCEDURE NO HOSPITALIZATION HISTORY. REVIEW OF SYSTEMS REVIEWED BY: PROVIDER: JAZIEL RIVAS . CONSTITUTIONAL: ANY CHANGE IN YOUR MEDICAL CONDITION? NO . CHILLS NO . FEVER NO . INFECTION: DO YOU HAVE NEW INFECTIONS? NO . DO YOU HAVE HISTORY OF MRSA? NO . MUSCULOSKELETAL: ANY NEW PATTERNS OF PAIN OR NUMBNESS? YES . GASTROENTEROLOGY: ANY NEW CHANGE IN BOWEL CONTROL? NO . GENITOURINARY: ANY NEW CHANGE IN BLADDER CONTROL? NO . IS THERE A CHANCE YOU COULD BE ? NO . HEMATOLOGY/LYMPH: DO YOU TAKE ANY BLOOD THINNERS? (FOR EXAMPLE- COUMADIN, PLAVIX, AGGRENOX, PLATEL, PRADAXA, OR XARELTO) NO . WHEN WAS YOUR LAST DOSE? DATE: TIME: . NEUROLOGY: HAVE YOU FALLEN IN THE PAST 12 MONTHS? NO . ANY NEW EXTREMITY NUMBNESS OR WEAKNESS? YES INCREASED CRAMPING IN BOTH LEGS THROUGHOUT THE DAY . CARDIOLOGY: DO YOU HAVE A PACEMAKER OR DEFIBRILLATOR? NO . RESPIRATORY: HAVE YOU BEEN SICK IN THE PAST WEEK? NO . FEVER NO . FLU LIKE SYMPTOMS? NO . COUGH NO . INTEGUMENTARY: DO YOU HAVE ANY RASHES OR OPEN SORES? NO . ALLERGIC/IMMUNO: ARE YOU ALLERGIC TO IV DYE? NO . ANY NEW ALLERGIES? NO . PSYCHIATRIC: DO YOU HAVE THOUGHTS OF HURTING YOURSELF OR SOMEONE ELSE? NO . ARE YOU ABUSED, NEGLECTED, OR IN AN UNSAFE ENVIRONMENT? NO . ENDOCRINOLOGY: ARE YOU DIABETIC? NO . OTHER: DO YOU NEED ANY PRESCRIPTIONS? NO . IF YES, PLEASE LIST: ____ . ANY NEW PROBLEMS WITH YOUR MEDICATIONS? NO . WHEN DID YOU LAST EAT? ____ . WHEN DID YOU LAST DRINK? ____ . WHAT DID YOU LAST DRINK? ____ . NAME OF PERSON DRIVING YOU HOME? ____ . DO YOU HAVE ANY OTHER QUESTIONS OR CONCERNS NO . VITAL SIGNS WT 265.4 LBS, HT 71 IN, BMI 37.01 INDEX, BP 123/77 MM HG, HR 98 /MIN, RR 20 /MIN, TEMP 96.4 F, OXYGEN SAT % 95%, NA INITIALS SC 11:05. EXAMINATION GENERAL EXAMINATION: GENERALNO ACUTE DISTRESS, WELL NOURISHED AND HYDRATED. PSYCHAPPROPRIATE MOOD AND AFFECT . LUNGS:CLEAR TO AUSCULTATION BILATERALLY, NO WHEEZES, RHONCHI, RALES. HEART:NO MURMURS, REGULAR RATE AND RHYTHM. BACK:POINT TENDER THORACIC AREA , STARTING SKIN SHOWS NO ERYTHEMA, ECCHYMOSIS, INCREASED WARMTH, AND/OR SKIN ERUPTIONS NOTED. . ASSESSMENTS MYALGIA, OTHER SITE - M79.18 (PRIMARY) TREATMENT MYALGIA, OTHER SITE CLINICAL NOTES: 63-YEAR-OLD MALE IN FOR POST TPI FOLLOW-UP. GIVEN PRESENTING SYMPTOMS AND RESULTS OF PHYSICAL EXAMINATION RECOMMENDED THORACIC TPI WITH POST PROCEDURAL FOLLOW-UP. PATIENT HAS EXPRESSED UNDERSTANDING OF AND WAS IN AGREEMENT WITH TREATMENT PLAN. GIVEN TIME TO ASK QUESTIONS AND EXPRESS CONCERNS. PROCEDURE CODES FA211 ESTABILISHED PATIENT [facility] FACILITY CHARGE DISPOSITION & COMMUNICATION FOLLOW UP POST PROCEDURE (REASON: THORACIC TPI ) ELECTRONICALLY SIGNED BY ESTUARDO LICONA ON 05/15/2019 AT 01:02 PM EDT DISCLAIMER : THIS IS A VISIT SUMMARY EXTRACTED FROM THE [employer] CHART. IT IS NOT A COPY OF THE [employer] PROGRESS NOTE. ABNER
== END ==
LOC: M PAIN 10:45
PROVIDERS: ATTEND Family Medicine
DX: M79.18 Myalgia, other site (principal); M48.00 Spinal stenosis, site unspecified; E03.9 Hypothyroidism, unspecified; G62.9 Polyneuropathy, unspecified; F17.210 Nicotine dependence, cigarettes, uncomplicated; Z88.0 Allergy status to penicillin; Z79.899 Other long term (current) drug therapy

== ENCOUNTER → 2019-06-06 | Outpatient (CLI) | payer OTHER ==
[~2019-06-06] MED LIST changes: +BUPIVACAINE HCL 0.25% 10 ML VIAL As Ordered ONE; +BUPIVACAINE HCL 0.25% 30 ML VIAL As Ordered ONE; +TRIAMCINOLONE ACETONIDE SUSP 40 MG/ML VIAL (J3301) As Ordered ONE; +diazePAM 5 MG TAB As Ordered ONE; +oxyCODONE 5MG TAB As Ordered ONE
--- NOTE | 2019-06-20 00:53 | ECWPNPC ---
PATIENT NAME: YESSENIA PAUL : 1955 GENDER: MALE VISIT DATE: 06/06/2019 DISCHARGE DATE: 06/06/19 1049 VISIT LOCKED DATE TIME: PHYSICIAN: BERT MAGALLANES MD RESOURCE: BERT MAGALLANES MD REASON FOR APPOINTMENT 1. THORACIC TPI HISTORY OF PRESENT ILLNESS HISTORY OF PRESENT ILLNESS: PAIN THE PATIENT DESCRIBES THE PAIN... FALL RISK SCREENING: SCREENING :NO FALLS REPORTED IN THE LAST YEAR CURRENT MEDICATIONS TAKING LEVOTHYROXINE SODIUM 150 MCG TABLET 1 TABLET ON AN EMPTY STOMACH IN THE MORNING ORALLY ONCE A DAY, NOTES: 06/05/19 TAKING HYDROCODONE-ACETAMINOPHEN 7.5-325 MG TABLET 1 TABLET NEEDED ORALLY EVERY 6 HRS MDD 3, NOTES: 06/05/19 TAKING MAGNESIUM 250 MG TABLET 1 TABLET WITH A MEAL ORALLY ONCE A DAY, NOTES: 06/05/19 NOT-TAKING IBUPROFEN 800 MG TABLET 1 TABLET WITH FOOD OR MILK NEEDED ORALLY BID NOT-TAKING SILDENAFIL CITRATE 100 MG TABLET 1 TABLET NEEDED ORALLY ONCE A DAY NOT-TAKING CELECOXIB 200 MG CAPSULE 1 CAPSULE WITH FOOD ORALLY ONCE A DAY MEDICATION LIST REVIEWED AND RECONCILED WITH THE PATIENT PAST MEDICAL HISTORY DEGENARATIVE DISC DISEASE SPONDYLOSIS SPINAL STENOSIS HYPOTHYROID NEUROPATHY ALLERGIES PENICILLIN (FOR ALLERGIES USE ONLY) SURGICAL HISTORY HERNIA 12-17 EAR SURGERY 1958 TONSILS REMOVED 1961 FAMILY HISTORY FATHER: 38 YRS, DIAGNOSED WITH UNSPECIFIED HEART DISEASE MOTHER: 37 YRS, OTHER MALIGNANT NEOPLASM OF UNSPECIFIED SITE SIBLINGS: PT MOTHER FROM STOMACH CANCER. SOCIAL HISTORY GENERAL: TOBACCO USE ARE YOU A:CURRENT EVERY DAY SMOKER ADDITIONAL FINDINGS: TOBACCO USERLIGHT CIGARETTE SMOKER ((1-9 CIGS/DAY) SMOKING CESSATION INFORMATION GIVEN06/06/2019 EDUCATED PT REGARDING THE EFFECTS OF SMOKING AND ENCOURAGED PT TO QUIT. DS OTHERS AT HOME: NONE. EDUCATION LEVEL OF EDUCATION:COLLEGE DIET: REGULAR. LANGUAGE LANGUAGES SPOKEN:ICELANDIC DOMESTIC VIOLENCE DO YOU FEEL SAFE IN YOUR ENVIRONMENT?YES RECREATIONAL DRUG USE DRUG USE?NO LEARNING BARRIERS / SPECIAL NEEDS BARRIERS TO LEARNING?NO HEARING IMPAIRED?NO VISION IMPAIRED?NO COGNITIVELY IMPAIRED?NO READINESS TO LEARN?YES PAIN CLINIC PFS, CLERGY, PUBLIC HEALTH REFERRALS WAS THE PROVIDER NOTIFIED OF ANY PERTINENT INFO?YES HAS THE PATIENT BEEN EDUCATED REGARDING HIS/HER PLAN OF CARE?YES HAS THE PATIENT BEEN EDUCATED REGARDING PAIN, THE RISK FOR PAIN, THE IMPORTANCE OF EFFECTIVE PAIN MANAGEMENT, AND THE PAIN ASSESSMENT PROCESS?YES LATEX QUESTIONNAIRE LATEX ALLERGY : HAVE YOU EVER DEVELOPED ANY TYPE OF REACTION AFTER HANDLING LATEX PRODUCTS SUCH RUBBER GLOVES, CONDOMS, DIAPHRAGMS, BALLOONS, SOCKS, OR UNDERWEAR?NO LATEX ALLERGY : HAVE YOU EVER DEVELOPED ANY TYPE OF REACTION DURING OR AFTER DENTAL APPOINTMENT, VAGINAL/RECTAL EXAMINATION, SURGICAL PROCEDURE, OR ANY OTHER EXPOSURE?NO DATE ASKED : 04/22/2019 LATEX RISK : HAVE YOU EVER HAD ANY DIFFICULTY BREATHING OR HIVES AFTER EATING OR HANDLING ANY FRUITS, OR VEGETABLES; SUCH KIWI, BANANAS, STONE FRUITS, OR CHESTNUTSNO LATEX RISK : DO YOU HAVE A PREVIOUS PERSONAL HISTORY OF MORE THAN NINE SURGERIES, SPINA BIFIDA, OR REPEATED CATHERIZATIONS? NO LATEX RISK : ARE YOU FREQUENTLY EXPOSED TO LATEX PRODUCTS IN YOUR OCCUPATION?NO CAFFEINE CAFFEINE USE?YES PEPSI DAILY ADVANCE DIRECTIVE ADVANCE DIRECTIVE DISCUSSED WITH PATIENT:YES PT DOES NOT HAVE ANY HCP AND DECLINES INFO AT THIS TIME [employer] [id number] ALEVISM MARITAL STATUS: SINGLE. ALCOHOL SCREENING DID YOU HAVE A DRINK CONTAINING ALCOHOL IN THE PAST YEAR?NO POINTS0 INTERPRETATIONNEGATIVE OCCUPATION: RETIRED. REVIEWED WITH PT 04/08/19 1437 BV. HOSPITALIZATION/MAJOR DIAGNOSTIC PROCEDURE NO HOSPITALIZATION HISTORY. REVIEW OF SYSTEMS REVIEWED BY: PROVIDER: . CONSTITUTIONAL: ANY CHANGE IN YOUR MEDICAL CONDITION? NO . CHILLS NO . FEVER NO . INFECTION: DO YOU HAVE NEW INFECTIONS? NO . DO YOU HAVE HISTORY OF MRSA? NO . MUSCULOSKELETAL: ANY NEW PATTERNS OF PAIN OR NUMBNESS? YES, LES AND MORE INTENSE AT TIMES . GASTROENTEROLOGY: ANY NEW CHANGE IN BOWEL CONTROL? NO . GENITOURINARY: ANY NEW CHANGE IN BLADDER CONTROL? NO . IS THERE A CHANCE YOU COULD BE ? NO . HEMATOLOGY/LYMPH: DO YOU TAKE ANY BLOOD THINNERS? (FOR EXAMPLE- COUMADIN, PLAVIX, AGGRENOX, PLATEL, PRADAXA, OR XARELTO) NO . WHEN WAS YOUR LAST DOSE? DATE: TIME: . NEUROLOGY: HAVE YOU FALLEN IN THE PAST 12 MONTHS? YES, PRIOR TO LAST VISIT . ANY NEW EXTREMITY NUMBNESS OR WEAKNESS? NO . CARDIOLOGY: DO YOU HAVE A PACEMAKER OR DEFIBRILLATOR? NO . RESPIRATORY: HAVE YOU BEEN SICK IN THE PAST WEEK? NO . FEVER NO . FLU LIKE SYMPTOMS? NO . COUGH NO . INTEGUMENTARY: DO YOU HAVE ANY RASHES OR OPEN SORES? NO . ALLERGIC/IMMUNO: ARE YOU ALLERGIC TO IV DYE? NO . ANY NEW ALLERGIES? NO . PSYCHIATRIC: DO YOU HAVE THOUGHTS OF HURTING YOURSELF OR SOMEONE ELSE? NO . ARE YOU ABUSED, NEGLECTED, OR IN AN UNSAFE ENVIRONMENT? NO . ENDOCRINOLOGY: ARE YOU DIABETIC? YES . OTHER: DO YOU NEED ANY PRESCRIPTIONS? NO . IF YES, PLEASE LIST: ____ . ANY NEW PROBLEMS WITH YOUR MEDICATIONS? NO . WHEN DID YOU LAST EAT? 06/05/19 2230 . WHEN DID YOU LAST DRINK? 06/06/19 0930 . WHAT DID YOU LAST DRINK? WATER . NAME OF PERSON DRIVING YOU HOME? MARCO ANTONIO . DO YOU HAVE ANY OTHER QUESTIONS OR CONCERNS NO . VITAL SIGNS WT 266.4 LBS, HT 71 IN, BMI 37.15 INDEX, BP 122/80 MM HG, HR 107 /MIN, RR 20 /MIN, TEMP 97.6 F, OXYGEN SAT % 93%, NA INITIALS AW 0945, REVIEWED BY: EM. ASSESSMENTS MYALGIA, OTHER SITE - M79.18 (PRIMARY) PROCEDURES PN TRIGGER POINT INJECTION WITH STEROIDS PRE PROCEDURE DIAGNOSIS 1. MYALGIA 2. PAIN AT BILATERAL THORACIC AREA. POST PROCEDURE DIAGNOSIS 1. MYALGIA 2. PAIN AT BILATERAL THORACIC AREA. PROCEDURE TRIGGER POINT INJECTION AT RIGHT AND LEFT THORACIC AREA. SURGEON DR. BERT MAGALLANES I&C TECH NONE ANESTHESIA LOCAL PRE PROCEDURE NOTE THE PATIENT HAS A HISTORY OF CHRONIC PAIN AT THE RIGHT AND LEFT THORACIC AREA. I EVALUATED THE PATIENT AND REVIEWED THE CHART. THERE IS EVIDENCE OF BANDS OF TISSUE WITH RESTRICTION OF MOVEMENT AND PRESENCE OF TRIGGER POINT AT THE AFFECTED AREA. I WENT OVER THE RISKS, ALTERNATIVES, AND BENEFITS ASSOCIATED WITH THIS PROCEDURE. THE PATIENT WOULD LIKE TO PROCEED AND GIVES CONSENT TO PERFORM THE PROCEDURE. THE PATIENT DENIES UNEXPLAINABLE WEIGHT LOSS, FEVER, CHILLS, OR NEW CHANGES IN URINARY OR BOWEL CONTROL DESCRIPTION OF PROCEDURE THE PATIENT WAS BROUGHT TO THE PROCEDURE ROOM AND PLACED IN THE SITTING POSITION. THE AREA WAS CLEANED WITH ALCOHOL. THE PROCEDURE WAS DONE USING ASEPTIC STERILE TECHNIQUE. I CHECKED LATERALITY AND THE LEVEL WHERE THE PROCEDURE WAS GOING TO BE PERFORMED WITH THE PATIENT AND THE SUPPORTING STAFF AT THE MOMENT OF THE TIME OUT IN THE PROCEDURE ROOM. USING A 25-GAUGE NEEDLE, TRIGGER POINTS WERE INJECTED AT THE RIGHT AND LEFT THORACIC AREA WITH A TOTAL OF 40 ML OF BUPIVACAINE 0.25% AND KENALOG 40 MG. THERE WAS NO EVIDENCE OF BLOOD, PARESTHESIA OR CEREBROSPINAL FLUID DURING THE PROCEDURE. THE PATIENT WAS SENT TO THE RECOVERY ROOM. THE PATIENT WAS MOVING THE EXTREMITIES AND DOING WELL. THERE WAS NO COMPLICATION DURING THE PROCEDURE POST PROCEDURE NOTE THE PATIENT WILL BE SEEN IN A FOLLOW UP IN THE NEXT FEW WEEKS. INSTRUCTIONS WERE GIVEN, QUESTIONS WERE ANSWERED, AND THE PATIENT EXPRESSED UNDERSTANDING AND AGREES WITH THE PLAN. I, ROSA DONIS, DOCUMENTED THE ABOVE INFORMATION ACTING A SCRIBE FOR DR. MAGALLANES. I HAVE REVIEWED THE ABOVE DOCUMENT, WRITTEN BY ROSA DONIS SCRIBCheko AND I VERIFY THAT IT IS ACCURATE. PROCEDURE CODES 19300 INJ TRIGGER POINT / [facility] [place], [place] DISPOSITION & COMMUNICATION FOLLOW UP 3 WEEKS ELECTRONICALLY SIGNED BY BERT MAGALLANES MD, MD ON 06/19/2019 AT 06:37 PM EDT DISCLAIMER : THIS IS A VISIT SUMMARY EXTRACTED FROM THE [employer] CHART. IT IS NOT A COPY OF THE [employer] PROGRESS NOTE. ABNER
== END ==
LOC: M PAIN 09:30
PROVIDERS: ATTEND Anesthesiology
DX: M79.18 Myalgia, other site (principal); E03.9 Hypothyroidism, unspecified; F17.210 Nicotine dependence, cigarettes, uncomplicated; Z79.891 Long term (current) use of opiate analgesic; Z79.899 Other long term (current) drug therapy; Z88.0 Allergy status to penicillin
CPT/HCPCS: 20552; J3301

== ENCOUNTER → 2019-06-25 | Outpatient (CLI) | payer OTHER ==
[~2019-06-25] MED LIST changes: -BUPIVACAINE HCL 0.25% 10 ML VIAL As Ordered ONE; -BUPIVACAINE HCL 0.25% 30 ML VIAL As Ordered ONE; -TRIAMCINOLONE ACETONIDE SUSP 40 MG/ML VIAL (J3301) As Ordered ONE; -diazePAM 5 MG TAB As Ordered ONE; -oxyCODONE 5MG TAB As Ordered ONE
--- NOTE | 2019-06-27 01:58 | ECWPNPC ---
PATIENT NAME: YESSENIA PAUL : 1955 GENDER: MALE VISIT DATE: 06/25/2019 DISCHARGE DATE: 06/25/19 1215 VISIT LOCKED DATE TIME: PHYSICIAN: MARCO ANTONIO VERA RESOURCE: MARCO ANTONIO VERA REASON FOR APPOINTMENT 1. POST TPI HISTORY OF PRESENT ILLNESS HISTORY OF PRESENT ILLNESS: 63-YEAR-OLD MALE IN FOR POST TPI FOLLOW-UP. HE RATES HIS PAIN PREPROCEDURE AT A 7 OUT OF 10 AND POSTPROCEDURE AT A 3 OUT OF 10 AND FURTHER STATES THAT HIS PAIN RELIEF CONTINUES TODAY. HE RATES HIS PAIN CURRENTLY AT A 3 OUT OF 10 AND DESCRIBES IT ACHING, SHARP, SORE, AND CONTINUOUS. PAIN THE PATIENT DESCRIBES THE PAIN... FALL RISK SCREENING: SCREENING :NO FALLS REPORTED IN THE LAST YEAR CURRENT MEDICATIONS TAKING LEVOTHYROXINE SODIUM 150 MCG TABLET 1 TABLET ON AN EMPTY STOMACH IN THE MORNING ORALLY ONCE A DAY TAKING HYDROCODONE-ACETAMINOPHEN 7.5-325 MG TABLET 1 TABLET NEEDED ORALLY EVERY 6 HRS MDD 3 TAKING MAGNESIUM 250 MG TABLET 1 TABLET WITH A MEAL ORALLY ONCE A DAY NOT-TAKING IBUPROFEN 800 MG TABLET 1 TABLET WITH FOOD OR MILK NEEDED ORALLY BID NOT-TAKING SILDENAFIL CITRATE 100 MG TABLET 1 TABLET NEEDED ORALLY ONCE A DAY NOT-TAKING CELECOXIB 200 MG CAPSULE 1 CAPSULE WITH FOOD ORALLY ONCE A DAY MEDICATION LIST REVIEWED AND RECONCILED WITH THE PATIENT PAST MEDICAL HISTORY DEGENARATIVE DISC DISEASE SPONDYLOSIS SPINAL STENOSIS HYPOTHYROID NEUROPATHY ALLERGIES PENICILLIN (FOR ALLERGIES USE ONLY) SURGICAL HISTORY HERNIA 12-17 EAR SURGERY 1958 TONSILS REMOVED 1961 FAMILY HISTORY FATHER: 38 YRS, DIAGNOSED WITH UNSPECIFIED HEART DISEASE MOTHER: 37 YRS, OTHER MALIGNANT NEOPLASM OF UNSPECIFIED SITE SIBLINGS: PT MOTHER FROM STOMACH CANCER. SOCIAL HISTORY GENERAL: TOBACCO USE ARE YOU A:CURRENT SMOKER ARE YOU INTERESTED IN QUITTING?READY TO QUIT GOING TO START THE PATCHES NEXT WEEK. PREVIOUS QUIT ATTEMPTS?YES, WITHIN THE LAST 6 MONTHS. COUNSELED THE PATIENT ON TOBACCO USE, CESSATION [id number]/30/2019 PATIENT COUNSELED ON THE DANGERS OF TOBACCO USE AND URGED TO QUIT:06/25/2019 ADDITIONAL FINDINGS: TOBACCO USERLIGHT CIGARETTE SMOKER ((1-9 CIGS/DAY) SMOKING CESSATION INFORMATION GIVEN06/06/2019 EDUCATED PT REGARDING THE EFFECTS OF SMOKING AND ENCOURAGED PT TO QUIT. DS OTHERS AT HOME: NONE. EDUCATION LEVEL OF EDUCATION:COLLEGE DIET: REGULAR. LANGUAGE LANGUAGES SPOKEN:[place] DOMESTIC VIOLENCE DO YOU FEEL SAFE IN YOUR ENVIRONMENT?YES RECREATIONAL DRUG USE DRUG USE?NO LEARNING BARRIERS / SPECIAL NEEDS BARRIERS TO LEARNING?NO HEARING IMPAIRED?NO VISION IMPAIRED?NO COGNITIVELY IMPAIRED?NO READINESS TO LEARN?YES PAIN CLINIC PFS, CLERGY, PUBLIC HEALTH REFERRALS WAS THE PROVIDER NOTIFIED OF ANY PERTINENT INFO?YES HAS THE PATIENT BEEN EDUCATED REGARDING HIS/HER PLAN OF CARE?YES HAS THE PATIENT BEEN EDUCATED REGARDING PAIN, THE RISK FOR PAIN, THE IMPORTANCE OF EFFECTIVE PAIN MANAGEMENT, AND THE PAIN ASSESSMENT PROCESS?YES LATEX QUESTIONNAIRE LATEX ALLERGY : HAVE YOU EVER DEVELOPED ANY TYPE OF REACTION AFTER HANDLING LATEX PRODUCTS SUCH RUBBER GLOVES, CONDOMS, DIAPHRAGMS, BALLOONS, SOCKS, OR UNDERWEAR?NO LATEX ALLERGY : HAVE YOU EVER DEVELOPED ANY TYPE OF REACTION DURING OR AFTER DENTAL APPOINTMENT, VAGINAL/RECTAL EXAMINATION, SURGICAL PROCEDURE, OR ANY OTHER EXPOSURE?NO LATEX RISK : HAVE YOU EVER HAD ANY DIFFICULTY BREATHING OR HIVES AFTER EATING OR HANDLING ANY FRUITS, OR VEGETABLES; SUCH KIWI, BANANAS, STONE FRUITS, OR CHESTNUTSNO LATEX RISK : DO YOU HAVE A PREVIOUS PERSONAL HISTORY OF MORE THAN NINE SURGERIES, SPINA BIFIDA, OR REPEATED CATHERIZATIONS? NO LATEX RISK : ARE YOU FREQUENTLY EXPOSED TO LATEX PRODUCTS IN YOUR OCCUPATION?NO DATE ASKED : 04/22/2019 CAFFEINE CAFFEINE USE?YES PEPSI DAILY ADVANCE DIRECTIVE ADVANCE DIRECTIVE DISCUSSED WITH PATIENT:YES PT DOES NOT HAVE ANY HCP AND DECLINES INFO AT THIS TIME [id number] YAZIDISM MARITAL STATUS: SINGLE. ALCOHOL SCREENING DID YOU HAVE A DRINK CONTAINING ALCOHOL IN THE PAST YEAR?NO POINTS0 INTERPRETATIONNEGATIVE OCCUPATION: RETIRED. REVIEWED WITH PT 04/08/19 1437 BVREVIEWED WITH PATIENT 06/25/19 1146 JS. HOSPITALIZATION/MAJOR DIAGNOSTIC PROCEDURE NO HOSPITALIZATION HISTORY. REVIEW OF SYSTEMS REVIEWED BY: PROVIDER: JAZIEL RIVAS . CONSTITUTIONAL: ANY CHANGE IN YOUR MEDICAL CONDITION? NO . CHILLS NO . FEVER NO . INFECTION: DO YOU HAVE NEW INFECTIONS? NO . DO YOU HAVE HISTORY OF MRSA? NO . MUSCULOSKELETAL: ANY NEW PATTERNS OF PAIN OR NUMBNESS? NO . GASTROENTEROLOGY: ANY NEW CHANGE IN BOWEL CONTROL? NO . GENITOURINARY: ANY NEW CHANGE IN BLADDER CONTROL? NO . IS THERE A CHANCE YOU COULD BE ? NO . HEMATOLOGY/LYMPH: DO YOU TAKE ANY BLOOD THINNERS? (FOR EXAMPLE- COUMADIN, PLAVIX, AGGRENOX, PLATEL, PRADAXA, OR XARELTO) NO . WHEN WAS YOUR LAST DOSE? DATE: TIME: . NEUROLOGY: HAVE YOU FALLEN IN THE PAST 12 MONTHS? YES, STATES PRIOR TO LAST VISIT, DISCUSSED AT PREVIOUS VISIT . ANY NEW EXTREMITY NUMBNESS OR WEAKNESS? NO . CARDIOLOGY: DO YOU HAVE A PACEMAKER OR DEFIBRILLATOR? NO . RESPIRATORY: HAVE YOU BEEN SICK IN THE PAST WEEK? YES, SAYS HE'S GETTING OVER A COLD . FEVER NO . FLU LIKE SYMPTOMS? NO . COUGH YES . INTEGUMENTARY: DO YOU HAVE ANY RASHES OR OPEN SORES? NO . ALLERGIC/IMMUNO: ARE YOU ALLERGIC TO IV DYE? NO . ANY NEW ALLERGIES? NO . PSYCHIATRIC: DO YOU HAVE THOUGHTS OF HURTING YOURSELF OR SOMEONE ELSE? NO . ARE YOU ABUSED, NEGLECTED, OR IN AN UNSAFE ENVIRONMENT? NO . ENDOCRINOLOGY: ARE YOU DIABETIC? YES . OTHER: DO YOU NEED ANY PRESCRIPTIONS? NO . IF YES, PLEASE LIST: ____ . ANY NEW PROBLEMS WITH YOUR MEDICATIONS? NO . WHEN DID YOU LAST EAT? ____ . WHEN DID YOU LAST DRINK? ____ . WHAT DID YOU LAST DRINK? ____ . NAME OF PERSON DRIVING YOU HOME? ____ . DO YOU HAVE ANY OTHER QUESTIONS OR CONCERNS NO . VITAL SIGNS WT 266.4 LBS, HT 71 IN, BMI 37.15 INDEX, BP 117/74 MM HG, HR 110 /MIN, RR 20 /MIN, TEMP 97.2 F, OXYGEN SAT % 92%, SAFE IN ENV? (Y/N) YES, NA INITIALS AW 1148, REVIEWED BY: STEPHAN. EXAMINATION GENERAL EXAMINATION: GENERALNO ACUTE DISTRESS, WELL NOURISHED AND HYDRATED. PSYCHAPPROPRIATE MOOD AND AFFECT . LUNGS:CLEAR TO AUSCULTATION BILATERALLY, NO WHEEZES, RHONCHI, RALES. HEART:NO MURMURS, REGULAR RATE AND RHYTHM. ASSESSMENTS MYALGIA, OTHER SITE - M79.18 (PRIMARY) TREATMENT MYALGIA, OTHER SITE CLINICAL NOTES: 63-YEAR-OLD MALE IN FOR POST TPI FOLLOW-UP. GIVEN PRESENTING SYMPTOMS AND RESULTS OF PHYSICAL EXAMINATION RECOMMENDED FOLLOW-UP FOLLOW-UP IN 6 WEEKS. PATIENT HAS EXPRESSED UNDERSTANDING OF AND WAS IN AGREEMENT WITH TREATMENT PLAN. GIVEN TIME TO ASK QUESTIONS AND EXPRESS CONCERNS. . PROCEDURE CODES FA211 ESTABILISHED PATIENT [facility] CHARGE DISPOSITION & COMMUNICATION FOLLOW UP 6 WEEKS (REASON: CHRONIC PAIN) ELECTRONICALLY SIGNED BY ESTUARDO LICONA ON 06/26/2019 AT 08:49 AM EDT DISCLAIMER : THIS IS A VISIT SUMMARY EXTRACTED FROM THE [employer] CHART. IT IS NOT A COPY OF THE [employer] PROGRESS NOTE. ABNER
== END ==
LOC: M PAIN 11:15
PROVIDERS: ATTEND Family Medicine
DX: M79.18 Myalgia, other site (principal); E03.9 Hypothyroidism, unspecified; F17.210 Nicotine dependence, cigarettes, uncomplicated; M47.9 Spondylosis, unspecified; M48.00 Spinal stenosis, site unspecified; G62.9 Polyneuropathy, unspecified; Z79.891 Long term (current) use of opiate analgesic; Z79.899 Other long term (current) drug therapy; Z88.0 Allergy status to penicillin

== ENCOUNTER → 2019-08-06 | Outpatient (CLI) | payer OTHER ==
--- NOTE | 2019-08-12 03:38 | ECWPNPC ---
PATIENT NAME: YESSENIA PAUL : 1955 GENDER: MALE VISIT DATE: 08/06/2019 DISCHARGE DATE: 08/06/19 1456 VISIT LOCKED DATE TIME: PHYSICIAN: MARCO ANTONIO VERA RESOURCE: MARCO ANTONIO VERA REASON FOR APPOINTMENT 1. 6 WEEKS HISTORY OF PRESENT ILLNESS HISTORY OF PRESENT ILLNESS: 63-YEAR-OLD MALE IN FOR CHRONIC PAIN FOLLOW-UP. HE RATES HIS PAIN CURRENTLY AT A 6 OUT OF 10 AND DESCRIBES IT ACHING, SHARP, AND SORE. HE FEELS MEDICATIONS ARE WORKING WELL AND DENIES MED SIDE EFFECTS AT THIS TIME. PATIENT WOULD LIKE TO DISCUSS A REPEAT TRIGGER POINT INJECTION HE FEELS HIS PAIN IS ESCALATING. PAIN THE PATIENT DESCRIBES THE PAIN... FALL RISK SCREENING: SCREENING :NO FALLS REPORTED IN THE LAST YEAR CURRENT MEDICATIONS TAKING LEVOTHYROXINE SODIUM 150 MCG TABLET 1 TABLET ON AN EMPTY STOMACH IN THE MORNING ORALLY ONCE A DAY TAKING HYDROCODONE-ACETAMINOPHEN 7.5-325 MG TABLET 1 TABLET NEEDED ORALLY EVERY 6 HRS MDD 3 TAKING MAGNESIUM 250 MG TABLET 1 TABLET WITH A MEAL ORALLY ONCE A DAY NOT-TAKING IBUPROFEN 800 MG TABLET 1 TABLET WITH FOOD OR MILK NEEDED ORALLY BID NOT-TAKING SILDENAFIL CITRATE 100 MG TABLET 1 TABLET NEEDED ORALLY ONCE A DAY NOT-TAKING CELECOXIB 200 MG CAPSULE 1 CAPSULE WITH FOOD ORALLY ONCE A DAY MEDICATION LIST REVIEWED AND RECONCILED WITH THE PATIENT PAST MEDICAL HISTORY DEGENARATIVE DISC DISEASE SPONDYLOSIS SPINAL STENOSIS HYPOTHYROID NEUROPATHY ALLERGIES PENICILLIN (FOR ALLERGIES USE ONLY) SURGICAL HISTORY HERNIA 08-12 EAR SURGERY 1958 TONSILS REMOVED 1961 FAMILY HISTORY FATHER: 38 YRS, DIAGNOSED WITH UNSPECIFIED HEART DISEASE MOTHER: 37 YRS, OTHER MALIGNANT NEOPLASM OF UNSPECIFIED SITE SIBLINGS: PT MOTHER FROM STOMACH CANCER. SOCIAL HISTORY GENERAL: TOBACCO USE ARE YOU A:CURRENT SMOKER ARE YOU INTERESTED IN QUITTING?READY TO QUIT GOING TO START THE PATCHES NEXT WEEK. PREVIOUS QUIT ATTEMPTS?YES, WITHIN THE LAST 6 MONTHS. COUNSELED THE PATIENT ON TOBACCO USE, CESSATION [id number]/11/2019 PATIENT COUNSELED ON THE DANGERS OF TOBACCO USE AND URGED TO QUIT:08/06/2019 ADDITIONAL FINDINGS: TOBACCO USERLIGHT CIGARETTE SMOKER ((1-9 CIGS/DAY) SMOKING CESSATION INFORMATION GIVEN06/06/2019 EDUCATED PT REGARDING THE EFFECTS OF SMOKING AND ENCOURAGED PT TO QUIT. DS OTHERS AT HOME: NONE. EDUCATION LEVEL OF EDUCATION:COLLEGE DIET: REGULAR. LANGUAGE LANGUAGES SPOKEN:[place] DOMESTIC VIOLENCE DO YOU FEEL SAFE IN YOUR ENVIRONMENT?YES RECREATIONAL DRUG USE DRUG USE?NO LEARNING BARRIERS / SPECIAL NEEDS BARRIERS TO LEARNING?NO HEARING IMPAIRED?NO VISION IMPAIRED?NO COGNITIVELY IMPAIRED?NO READINESS TO LEARN?YES PAIN CLINIC PFS, CLERGY, PUBLIC HEALTH REFERRALS WAS THE PROVIDER NOTIFIED OF ANY PERTINENT INFO?YES HAS THE PATIENT BEEN EDUCATED REGARDING HIS/HER PLAN OF CARE?YES HAS THE PATIENT BEEN EDUCATED REGARDING PAIN, THE RISK FOR PAIN, THE IMPORTANCE OF EFFECTIVE PAIN MANAGEMENT, AND THE PAIN ASSESSMENT PROCESS?YES LATEX QUESTIONNAIRE LATEX ALLERGY : HAVE YOU EVER DEVELOPED ANY TYPE OF REACTION AFTER HANDLING LATEX PRODUCTS SUCH RUBBER GLOVES, CONDOMS, DIAPHRAGMS, BALLOONS, SOCKS, OR UNDERWEAR?NO LATEX ALLERGY : HAVE YOU EVER DEVELOPED ANY TYPE OF REACTION DURING OR AFTER DENTAL APPOINTMENT, VAGINAL/RECTAL EXAMINATION, SURGICAL PROCEDURE, OR ANY OTHER EXPOSURE?NO DATE ASKED : 04/22/2019 LATEX RISK : HAVE YOU EVER HAD ANY DIFFICULTY BREATHING OR HIVES AFTER EATING OR HANDLING ANY FRUITS, OR VEGETABLES; SUCH KIWI, BANANAS, STONE FRUITS, OR CHESTNUTSNO LATEX RISK : DO YOU HAVE A PREVIOUS PERSONAL HISTORY OF MORE THAN NINE SURGERIES, SPINA BIFIDA, OR REPEATED CATHERIZATIONS? NO LATEX RISK : ARE YOU FREQUENTLY EXPOSED TO LATEX PRODUCTS IN YOUR OCCUPATION?NO CAFFEINE CAFFEINE USE?YES PEPSI DAILY ADVANCE DIRECTIVE ADVANCE DIRECTIVE DISCUSSED WITH PATIENT:YES PT DOES NOT HAVE ANY HCP AND DECLINES INFO AT THIS TIME [facility] [id number] YAZIDI MARITAL STATUS: SINGLE. ALCOHOL SCREENING DID YOU HAVE A DRINK CONTAINING ALCOHOL IN THE PAST YEAR?NO POINTS0 INTERPRETATIONNEGATIVE OCCUPATION: RETIRED. REVIEWED WITH PT 04/08/19 1437 BVREVIEWED WITH PATIENT 06/25/19 1146 JSREVIEWED WITH PATIENT 08/06/19 1444 NLJ. HOSPITALIZATION/MAJOR DIAGNOSTIC PROCEDURE NO HOSPITALIZATION HISTORY. REVIEW OF SYSTEMS REVIEWED BY: PROVIDER: JAZIEL RIVAS . CONSTITUTIONAL: ANY CHANGE IN YOUR MEDICAL CONDITION? NO . CHILLS NO . FEVER NO . INFECTION: DO YOU HAVE NEW INFECTIONS? NO . DO YOU HAVE HISTORY OF MRSA? NO . MUSCULOSKELETAL: ANY NEW PATTERNS OF PAIN OR NUMBNESS? YES- PAIN HAS RETURNED AND ALSO FEELS PAIN JUST ABOVE WAIST BAND . GASTROENTEROLOGY: ANY NEW CHANGE IN BOWEL CONTROL? NO . GENITOURINARY: ANY NEW CHANGE IN BLADDER CONTROL? NO . IS THERE A CHANCE YOU COULD BE ? NO . HEMATOLOGY/LYMPH: DO YOU TAKE ANY BLOOD THINNERS? (FOR EXAMPLE- COUMADIN, PLAVIX, AGGRENOX, PLATEL, PRADAXA, OR XARELTO) NO . WHEN WAS YOUR LAST DOSE? DATE: TIME: . NEUROLOGY: HAVE YOU FALLEN IN THE PAST 12 MONTHS? YES- NO FALLS SINCE LAST VISIT . ANY NEW EXTREMITY NUMBNESS OR WEAKNESS? NO . CARDIOLOGY: DO YOU HAVE A PACEMAKER OR DEFIBRILLATOR? NO . RESPIRATORY: HAVE YOU BEEN SICK IN THE PAST WEEK? NO . FEVER NO . FLU LIKE SYMPTOMS? NO . COUGH NO . INTEGUMENTARY: DO YOU HAVE ANY RASHES OR OPEN SORES? NO . ALLERGIC/IMMUNO: ARE YOU ALLERGIC TO IV DYE? NO . ANY NEW ALLERGIES? NO . PSYCHIATRIC: DO YOU HAVE THOUGHTS OF HURTING YOURSELF OR SOMEONE ELSE? NO . ARE YOU ABUSED, NEGLECTED, OR IN AN UNSAFE ENVIRONMENT? NO . ENDOCRINOLOGY: ARE YOU DIABETIC? YES . OTHER: DO YOU NEED ANY PRESCRIPTIONS? NO . IF YES, PLEASE LIST: ____ . ANY NEW PROBLEMS WITH YOUR MEDICATIONS? NO . WHEN DID YOU LAST EAT? ____ . WHEN DID YOU LAST DRINK? ____ . WHAT DID YOU LAST DRINK? ____ . NAME OF PERSON DRIVING YOU HOME? ____ . DO YOU HAVE ANY OTHER QUESTIONS OR CONCERNS NO . VITAL SIGNS WT 242.2 LBS, HT 71 IN, BMI 33.78 INDEX, BP 110/78 MM HG, HR 101 /MIN, RR 18 /MIN, TEMP 97.4 F, OXYGEN SAT % 95%, SAFE IN ENV? (Y/N) YES, NA INITIALS AW 1430, REVIEWED BY: SANTOS. EXAMINATION GENERAL EXAMINATION: GENERALNO ACUTE DISTRESS, WELL NOURISHED AND HYDRATED. PSYCHAPPROPRIATE MOOD AND AFFECT . LUNGS:CLEAR TO AUSCULTATION BILATERALLY, NO WHEEZES, RHONCHI, RALES. HEART:NO MURMURS, REGULAR RATE AND RHYTHM. BACK:POINT TENDER BILATERAL LOW BACK, STARTING SKIN SHOWS NO ERYTHEMA, ECCHYMOSIS, INCREASED WARMTH, AND/OR SKIN ERUPTIONS NOTED. . ASSESSMENTS MYALGIA, OTHER SITE - M79.18 (PRIMARY) TREATMENT MYALGIA, OTHER SITE NOTES: TPI THORACIC AND LOW BACK. CLINICAL NOTES: 63-YEAR-OLD MALE IN FOR CHRONIC PAIN FOLLOW-UP. GIVEN PRESENTING SYMPTOMS AND RESULTS OF PHYSICAL EXAMINATION RECOMMENDED TPI OF THE BILATERAL THORACIC AND LOW BACK WITH POST PROCEDURAL FOLLOW-UP. PATIENT HAS EXPRESSED UNDERSTANDING OF AND WAS IN AGREEMENT WITH TREATMENT PLAN. GIVEN TIME TO ASK QUESTIONS AND EXPRESS CONCERNS.. OTHERS NOTES: TRIGGER POINT INJECTION MATERIAL WAS PRINTED AND REVIEWED WITH PATIENT, PT VERBLAIZES UNDERSTANDING OF PREOCEDURE WELL PRE=PROCEDURE INSTRUCTIONS REVIEWED 08/06/19 1448 NLJ. PROCEDURE CODES FA211 ESTABILISHED PATIENT [facility] CHARGE DISPOSITION & COMMUNICATION FOLLOW UP POST PROCEDURE (REASON: TPI THORACIC AND LOW BACK ) ELECTRONICALLY SIGNED BY ESTUARDO LICONA ON 08/11/2019 AT 03:09 PM EST DISCLAIMER : THIS IS A VISIT SUMMARY EXTRACTED FROM THE [employer] CHART. IT IS NOT A COPY OF THE [employer] PROGRESS NOTE. ABNER
== END ==
LOC: M PAIN 14:15
PROVIDERS: ATTEND Family Medicine
DX: M79.18 Myalgia, other site (principal); G89.29 Other chronic pain; E03.9 Hypothyroidism, unspecified; F17.210 Nicotine dependence, cigarettes, uncomplicated; Z88.0 Allergy status to penicillin; Z79.899 Other long term (current) drug therapy

== ENCOUNTER → 2019-08-22 | Outpatient (REF) | payer OTHER ==
[2019-08-22 20:04] LABS: INFLUENZA A AMPLIFICATION NEGATIVE (NEGATIVE); INFLUENZA B AMPLIFICATION NEGATIVE (NEGATIVE)
== END ==
LOC: M LAB REF 10:04
PROVIDERS: ATTEND Physician Assistant
DX: R50.9 Fever, unspecified (principal)

== ENCOUNTER → 2019-09-05 | Outpatient (CLI) | payer OTHER | LOC: M PAIN 10:45 | PROVIDERS: ATTEND Anesthesiology | DX: Z53.20 Procedure and treatment not carried out because of patient's decision for unspecified reasons (principal) ==

== ENCOUNTER → 2019-09-22 | Outpatient (CLI) | payer OTHER ==
[2019-09-22 12:55] LABS: HEMOGLOBIN 19.2 g/dl (13.5-17.5); MEAN CORPUSCULAR HEMOGLOBIN 33.6 pg (27.0-33.0); MEAN CORPUSCULAR HGB CONC 34.9 g/dl (32.0-36.5); MEAN CORPUSCULAR VOLUME 96.3 fl (80.0-96.0); PLATELET COUNT, AUTOMATED 185 10^3/uL (150-450); RED BLOOD COUNT 5.71 10^6/uL (4.30-6.10); WHITE BLOOD COUNT 11.3 10^3/uL (4.0-10.0)
[2019-09-22 13:28] LABS: ALBUMIN 3.9 GM/DL (3.2-5.2); ALT/SGPT 59 U/L (12-78); BLOOD UREA NITROGEN 18 MG/DL (7-18); CALCIUM LEVEL 8.9 MG/DL (8.8-10.2); CARBON DIOXIDE LEVEL 26 MEQ/L (21-32); CHLORIDE LEVEL 105 MEQ/L (98-107); CHOLESTEROL LEVEL 198 MG/DL (<200); CREATININE FOR GFR 1.07 MG/DL (0.70-1.30); GLOMERULAR FILTRATION RATE > 60.0 (>49); GLUCOSE, FASTING 231 MG/DL (70-100); HDL CHOLESTEROL 20 MG/DL (>40); HEMOGLOBIN A1c 8.8 %; LDL CHOLESTEROL 120 MG/DL (<100); NON-HDL-C 178 MG/DL; POTASSIUM SERUM 4.2 MEQ/L (3.5-5.1); PROSTATIC SPECIFIC AG MONITOR 0.82 NG/ML (< 4.00); SODIUM LEVEL 138 MEQ/L (136-145); TESTOSTERONE 369 NG/DL (241-827); THYROID STIMULATING HORMONE 0.666 uIU/ML (0.358-3.740); TOTAL 25(OH) VITAMIN D 9.7 NG/ML (30.0-100.0); TOTAL PROTEIN 7.1 GM/DL (6.4-8.2); TRIGLYCERIDES LEVEL 291 MG/DL (<150)
== END ==
LOC: M LAB 12:15
PROVIDERS: ATTEND Family Medicine
DX: D64.9 Anemia, unspecified (principal); R53.83 Other fatigue; E03.9 Hypothyroidism, unspecified

== ENCOUNTER → 2019-10-03 | Outpatient (CLI) | payer OTHER ==
[~2019-10-03] MED LIST changes: +BUPIVACAINE HCL 0.25% 30 ML VIAL As Ordered ONE; +TRIAMCINOLONE ACETONIDE SUSP 40 MG/ML VIAL (J3301) As Ordered ONE; +diazePAM 2 MG TAB As Ordered ONE; +oxyCODONE 5MG TAB As Ordered ONE
--- NOTE | 2019-10-10 04:02 | ECWPNPC ---
PATIENT NAME: YESSENIA PAUL : 1955 GENDER: MALE VISIT DATE: 10/03/2019 DISCHARGE DATE: 10/03/19 1024 VISIT LOCKED DATE TIME: PHYSICIAN: BERT MAGALLANES MD RESOURCE: BERT MAGALLANES MD REASON FOR APPOINTMENT 1. TPI BILAT LOW BACK HISTORY OF PRESENT ILLNESS HISTORY OF PRESENT ILLNESS: PAIN THE PATIENT DESCRIBES THE PAIN... FALL RISK SCREENING: SCREENING :NO FALLS REPORTED IN THE LAST YEAR CURRENT MEDICATIONS TAKING LEVOTHYROXINE SODIUM 150 MCG TABLET 1 TABLET ON AN EMPTY STOMACH IN THE MORNING ORALLY ONCE A DAY, NOTES: 10/02/2019 10AM TAKING HYDROCODONE-ACETAMINOPHEN 7.5-325 MG TABLET 1 TABLET NEEDED ORALLY EVERY 6 HRS MDD 3, NOTES: 10/02/2019 10AM TAKING MAGNESIUM 250 MG TABLET 1 TABLET WITH A MEAL ORALLY ONCE A DAY, NOTES: 10/02/2019 10AM NOT-TAKING IBUPROFEN 800 MG TABLET 1 TABLET WITH FOOD OR MILK NEEDED ORALLY BID NOT-TAKING SILDENAFIL CITRATE 100 MG TABLET 1 TABLET NEEDED ORALLY ONCE A DAY NOT-TAKING CELECOXIB 200 MG CAPSULE 1 CAPSULE WITH FOOD ORALLY ONCE A DAY PAST MEDICAL HISTORY DEGENARATIVE DISC DISEASE SPONDYLOSIS SPINAL STENOSIS HYPOTHYROID NEUROPATHY ALLERGIES PENICILLIN (FOR ALLERGIES USE ONLY) SURGICAL HISTORY HERNIA 12-17 EAR SURGERY 1958 TONSILS REMOVED 1961 FAMILY HISTORY FATHER: 38 YRS, DIAGNOSED WITH UNSPECIFIED HEART DISEASE MOTHER: 37 YRS, OTHER MALIGNANT NEOPLASM OF UNSPECIFIED SITE SIBLINGS: PT MOTHER FROM STOMACH CANCER. SOCIAL HISTORY GENERAL: TOBACCO USE ARE YOU A:CURRENT SMOKER ARE YOU INTERESTED IN QUITTING?READY TO QUIT GOING TO START THE PATCHES NEXT WEEK. PREVIOUS QUIT ATTEMPTS?YES, WITHIN THE LAST 6 MONTHS. COUNSELED THE PATIENT ON TOBACCO USE, CESSATION [id number]/11/2019 PATIENT COUNSELED ON THE DANGERS OF TOBACCO USE AND URGED TO QUIT:10/03/2019 ADDITIONAL FINDINGS: TOBACCO USERLIGHT CIGARETTE SMOKER ((1-9 CIGS/DAY) SMOKING CESSATION INFORMATION GIVEN06/06/2019 EDUCATED PT REGARDING THE EFFECTS OF SMOKING AND ENCOURAGED PT TO QUIT. DS OTHERS AT HOME: NONE. EDUCATION LEVEL OF EDUCATION:COLLEGE DIET: REGULAR. LANGUAGE LANGUAGES SPOKEN:[place]IZEN OF [place] DOMESTIC VIOLENCE DO YOU FEEL SAFE IN YOUR ENVIRONMENT?YES RECREATIONAL DRUG USE DRUG USE?NO LEARNING BARRIERS / SPECIAL NEEDS BARRIERS TO LEARNING?NO HEARING IMPAIRED?NO VISION IMPAIRED?NO COGNITIVELY IMPAIRED?NO READINESS TO LEARN?YES PAIN CLINIC PFS, CLERGY, PUBLIC HEALTH REFERRALS WAS THE PROVIDER NOTIFIED OF ANY PERTINENT INFO?YES HAS THE PATIENT BEEN EDUCATED REGARDING HIS/HER PLAN OF CARE?YES HAS THE PATIENT BEEN EDUCATED REGARDING PAIN, THE RISK FOR PAIN, THE IMPORTANCE OF EFFECTIVE PAIN MANAGEMENT, AND THE PAIN ASSESSMENT PROCESS?YES LATEX QUESTIONNAIRE LATEX ALLERGY : HAVE YOU EVER DEVELOPED ANY TYPE OF REACTION AFTER HANDLING LATEX PRODUCTS SUCH RUBBER GLOVES, CONDOMS, DIAPHRAGMS, BALLOONS, SOCKS, OR UNDERWEAR?NO LATEX ALLERGY : HAVE YOU EVER DEVELOPED ANY TYPE OF REACTION DURING OR AFTER DENTAL APPOINTMENT, VAGINAL/RECTAL EXAMINATION, SURGICAL PROCEDURE, OR ANY OTHER EXPOSURE?NO LATEX RISK : HAVE YOU EVER HAD ANY DIFFICULTY BREATHING OR HIVES AFTER EATING OR HANDLING ANY FRUITS, OR VEGETABLES; SUCH KIWI, BANANAS, STONE FRUITS, OR CHESTNUTSNO LATEX RISK : DO YOU HAVE A PREVIOUS PERSONAL HISTORY OF MORE THAN NINE SURGERIES, SPINA BIFIDA, OR REPEATED CATHERIZATIONS? NO LATEX RISK : ARE YOU FREQUENTLY EXPOSED TO LATEX PRODUCTS IN YOUR OCCUPATION?NO DATE ASKED : 10/03/2019 CAFFEINE CAFFEINE USE?YES PEPSI DAILY ADVANCE DIRECTIVE ADVANCE DIRECTIVE DISCUSSED WITH PATIENT:YES PT DOES NOT HAVE ANY HCP AND DECLINES INFO AT THIS TIME [facility] [id number] CHEONDOISM MARITAL STATUS: SINGLE. ALCOHOL SCREENING DID YOU HAVE A DRINK CONTAINING ALCOHOL IN THE PAST YEAR?NO POINTS0 INTERPRETATIONNEGATIVE OCCUPATION: RETIRED. REVIEWED WITH PT 04/08/19 1437 BVREVIEWED WITH PATIENT 06/25/19 1146 JSREVIEWED WITH PATIENT 08/06/19 1444 NLJREVIEWED WITH PATIENT 10/03/2019 DS. HOSPITALIZATION/MAJOR DIAGNOSTIC PROCEDURE NO HOSPITALIZATION HISTORY. REVIEW OF SYSTEMS REVIEWED BY: PROVIDER: . CONSTITUTIONAL: ANY CHANGE IN YOUR MEDICAL CONDITION? NO . CHILLS NO . FEVER NO . INFECTION: DO YOU HAVE NEW INFECTIONS? NO . DO YOU HAVE HISTORY OF MRSA? NO . MUSCULOSKELETAL: ANY NEW PATTERNS OF PAIN OR NUMBNESS? NO . GASTROENTEROLOGY: ANY NEW CHANGE IN BOWEL CONTROL? NO . GENITOURINARY: ANY NEW CHANGE IN BLADDER CONTROL? NO . IS THERE A CHANCE YOU COULD BE ? NO . HEMATOLOGY/LYMPH: DO YOU TAKE ANY BLOOD THINNERS? (FOR EXAMPLE- COUMADIN, PLAVIX, AGGRENOX, PLATEL, PRADAXA, OR XARELTO) NO . WHEN WAS YOUR LAST DOSE? DATE: TIME: . NEUROLOGY: HAVE YOU FALLEN IN THE PAST 12 MONTHS? YES, PT STATES THAT HE FELL IN PARKING LOT, NO INJURY, NO REPORT TO ED, NO BRUISING. DS . ANY NEW EXTREMITY NUMBNESS OR WEAKNESS? NO . CARDIOLOGY: DO YOU HAVE A PACEMAKER OR DEFIBRILLATOR? NO . RESPIRATORY: HAVE YOU BEEN SICK IN THE PAST WEEK? NO . FEVER NO . FLU LIKE SYMPTOMS? NO . COUGH NO . INTEGUMENTARY: DO YOU HAVE ANY RASHES OR OPEN SORES? NO . ALLERGIC/IMMUNO: ARE YOU ALLERGIC TO IV DYE? NO . ANY NEW ALLERGIES? NO . PSYCHIATRIC: DO YOU HAVE THOUGHTS OF HURTING YOURSELF OR SOMEONE ELSE? NO . ARE YOU ABUSED, NEGLECTED, OR IN AN UNSAFE ENVIRONMENT? NO . ENDOCRINOLOGY: ARE YOU DIABETIC? YES, PT STATES THAT HE MANAGES WITH DIET . OTHER: DO YOU NEED ANY PRESCRIPTIONS? NO . IF YES, PLEASE LIST: ____ . ANY NEW PROBLEMS WITH YOUR MEDICATIONS? NO . WHEN DID YOU LAST EAT? 09/01 2019 1145PM . WHEN DID YOU LAST DRINK? 09/01/2019 1145PM . WHAT DID YOU LAST DRINK? WATER . NAME OF PERSON DRIVING YOU HOME? MARCO ANTONIO . DO YOU HAVE ANY OTHER QUESTIONS OR CONCERNS NO . VITAL SIGNS WT 265.6 LBS, HT 71 IN, BMI 37.04 INDEX, BP 105/67 MM HG, HR 112 /MIN, RR 18 /MIN, TEMP 95.6 F, OXYGEN SAT % 91%, SAFE IN ENV? (Y/N) Y, NA INITIALS AW 0933, REVIEWED BY: DS. ASSESSMENTS MYALGIA, OTHER SITE - M79.18 (PRIMARY) PROCEDURES PN TRIGGER POINT INJECTION WITH STEROIDS PRE PROCEDURE DIAGNOSIS 1. MYALGIA 2. PAIN AT BILATERAL LOW BACK AREA POST PROCEDURE DIAGNOSIS 1. MYALGIA 2. PAIN AT BILATERAL LOW BACK AREA. PROCEDURE TRIGGER POINT INJECTION AT RIGHT AND LEFT LOW BACK AREA. SURGEON DR. BERT MAGALLANES ELEMENTARY PRINCIPAL NONE ANESTHESIA LOCAL PRE PROCEDURE NOTE THE PATIENT HAS A HISTORY OF CHRONIC PAIN AT THE RIGHT AND LEFT LOW BACK AREA. I EVALUATED THE PATIENT AND REVIEWED THE CHART. THERE IS EVIDENCE OF BANDS OF TISSUE WITH RESTRICTION OF MOVEMENT AND PRESENCE OF TRIGGER POINT AT THE AFFECTED AREA. I WENT OVER THE RISKS, ALTERNATIVES, AND BENEFITS ASSOCIATED WITH THIS PROCEDURE. THE PATIENT WOULD LIKE TO PROCEED AND GIVES CONSENT TO PERFORM THE PROCEDURE. THE PATIENT DENIES UNEXPLAINABLE WEIGHT LOSS, FEVER, CHILLS, OR NEW CHANGES IN URINARY OR BOWEL CONTROL DESCRIPTION OF PROCEDURE THE PATIENT WAS BROUGHT TO THE PROCEDURE ROOM AND PLACED IN THE SITTING POSITION. THE AREA WAS CLEANED WITH ALCOHOL. THE PROCEDURE WAS DONE USING ASEPTIC STERILE TECHNIQUE. I CHECKED LATERALITY AND THE LEVEL WHERE THE PROCEDURE WAS GOING TO BE PERFORMED WITH THE PATIENT AND THE SUPPORTING STAFF AT THE MOMENT OF THE TIME OUT IN THE PROCEDURE ROOM. USING A 25-GAUGE NEEDLE, TRIGGER POINTS WERE INJECTED AT THE RIGHT AND LEFT LOW BACK AREA WITH A TOTAL OF 40 ML OF BUPIVACAINE 0.25% AND KENALOG 40 MG. THERE WAS NO EVIDENCE OF BLOOD, PARESTHESIA OR CEREBROSPINAL FLUID DURING THE PROCEDURE. THE PATIENT WAS SENT TO THE RECOVERY ROOM. THE PATIENT WAS MOVING THE EXTREMITIES AND DOING WELL. THERE WAS NO COMPLICATION DURING THE PROCEDURE POST PROCEDURE NOTE THE PATIENT WILL BE SEEN IN A FOLLOW UP IN THE NEXT FEW WEEKS. I AM LOOKING FOR LONG LASTING PAIN RELIEF WITH THIS INJECTION. DEPENDING ON THIS INJECTIONS RESULTS, I MAY CONSIDER TRYING A LUMBAR FACET BLOCK IN THE FUTURE FOR THE PATIENT. INSTRUCTIONS WERE GIVEN, QUESTIONS WERE ANSWERED, AND THE PATIENT EXPRESSED UNDERSTANDING AND AGREES WITH THE PLAN. I, ROSA DONIS, DOCUMENTED THE ABOVE INFORMATION ACTING A SCRIBE FOR DR. MAGALLANES. I HAVE REVIEWED THE ABOVE DOCUMENT, WRITTEN BY ROSA DONIS SCRIBCheko AND I VERIFY THAT IT IS ACCURATE. PROCEDURE CODES [id number] INJ TRIGGER POINT /2 [facility] DISPOSITION & COMMUNICATION FOLLOW UP 3 WEEKS ELECTRONICALLY SIGNED BY BERT MAGALLANES MD, MD ON 10/09/2019 AT 01:54 PM EST DISCLAIMER : THIS IS A VISIT SUMMARY EXTRACTED FROM THE [employer] CHART. IT IS NOT A COPY OF THE [employer] PROGRESS NOTE. ABNER
== END ==
LOC: M PAIN 09:00
PROVIDERS: ATTEND Anesthesiology
DX: M79.18 Myalgia, other site (principal); E03.9 Hypothyroidism, unspecified; G62.9 Polyneuropathy, unspecified; F17.210 Nicotine dependence, cigarettes, uncomplicated; Z88.0 Allergy status to penicillin; Z79.899 Other long term (current) drug therapy
CPT/HCPCS: 20552; J3301

== ENCOUNTER → 2019-10-29 | Outpatient (CLI) | payer OTHER ==
[~2019-10-29] MED LIST changes: -BUPIVACAINE HCL 0.25% 30 ML VIAL As Ordered ONE; -TRIAMCINOLONE ACETONIDE SUSP 40 MG/ML VIAL (J3301) As Ordered ONE; -diazePAM 2 MG TAB As Ordered ONE; -oxyCODONE 5MG TAB As Ordered ONE
--- NOTE | 2019-10-30 23:38 | ECWPNPC ---
PATIENT NAME: YESSENIA PAUL : 1955 GENDER: MALE VISIT DATE: 10/29/2019 DISCHARGE DATE: 10/29/19 1512 VISIT LOCKED DATE TIME: PHYSICIAN: MARCO ANTONIO VERA RESOURCE: MARCO ANTONIO VERA REASON FOR APPOINTMENT 1. POST TPI HISTORY OF PRESENT ILLNESS HISTORY OF PRESENT ILLNESS: PAIN THE PATIENT DESCRIBES THE PAIN... 63-YEAR-OLD MALE IN FOR POST TPI FOLLOW-UP. HE RATES HIS PAIN PREPROCEDURE AT A 7 OUT OF 10 AND POST PROCEDURE AT A 0 OUT OF 10X8 DAYS. THE PAIN RELIEF WOULD'VE LASTED LONGER HOWEVER PATIENT HAD A FALL DOWN THE STAIRS. HE RATES HIS PAIN CURRENTLY AT A 4 OUT OF 10 AND DESCRIBES IT ACHING, SHARP, AND SORE. FALL RISK SCREENING: SCREENING :NO FALLS REPORTED IN THE LAST YEAR CURRENT MEDICATIONS TAKING LEVOTHYROXINE SODIUM 150 MCG TABLET 1 TABLET ON AN EMPTY STOMACH IN THE MORNING ORALLY ONCE A DAY TAKING HYDROCODONE-ACETAMINOPHEN 7.5-325 MG TABLET 1 TABLET NEEDED ORALLY EVERY 6 HRS MDD 3 TAKING MAGNESIUM 250 MG TABLET 1 TABLET WITH A MEAL ORALLY ONCE A DAY TAKING CHOLECALCIFEROL 1.25 MG (59685 UT) CAPSULE 1 CAPSULE ORALLY TAKING METFORMIN HCL 500 MG TABLET 1 TABLET WITH A MEAL ORALLY ONCE A DAY, NOTES: UNSURE OF DOSAGE NOT-TAKING IBUPROFEN 800 MG TABLET 1 TABLET WITH FOOD OR MILK NEEDED ORALLY BID NOT-TAKING SILDENAFIL CITRATE 100 MG TABLET 1 TABLET NEEDED ORALLY ONCE A DAY NOT-TAKING CELECOXIB 200 MG CAPSULE 1 CAPSULE WITH FOOD ORALLY ONCE A DAY MEDICATION LIST REVIEWED AND RECONCILED WITH THE PATIENT PAST MEDICAL HISTORY DEGENARATIVE DISC DISEASE SPONDYLOSIS SPINAL STENOSIS HYPOTHYROID NEUROPATHY PRE- DIABETIC VITAMIN D DEFICIENCY HYPERLIPIDEMIA ALLERGIES PENICILLIN (FOR ALLERGIES USE ONLY) SURGICAL HISTORY HERNIA 12-17 EAR SURGERY 1958 TONSILS REMOVED 1961 FAMILY HISTORY FATHER: 38 YRS, DIAGNOSED WITH UNSPECIFIED HEART DISEASE MOTHER: 37 YRS, OTHER MALIGNANT NEOPLASM OF UNSPECIFIED SITE SIBLINGS: PT MOTHER FROM STOMACH CANCER. SOCIAL HISTORY GENERAL: TOBACCO USE ARE YOU A:CURRENT SMOKER ARE YOU INTERESTED IN QUITTING?READY TO QUIT GOING TO START THE PATCHES NEXT WEEK. PREVIOUS QUIT ATTEMPTS?YES, WITHIN THE LAST 6 MONTHS. COUNSELED THE PATIENT ON TOBACCO USE, CESSATION [id number]/04/2020 PATIENT COUNSELED ON THE DANGERS OF TOBACCO USE AND URGED TO QUIT:10/29/2019 ADDITIONAL FINDINGS: TOBACCO USERLIGHT CIGARETTE SMOKER ((1-9 CIGS/DAY) SMOKING CESSATION INFORMATION GIVEN10/29/2019 EDUCATED PT REGARDING THE EFFECTS OF SMOKING AND ENCOURAGED PT TO QUIT. DS OTHERS AT HOME: NONE. EDUCATION LEVEL OF EDUCATION:COLLEGE DIET: REGULAR. LANGUAGE LANGUAGES SPOKEN:CITIZEN OF [place] DOMESTIC VIOLENCE DO YOU FEEL SAFE IN YOUR ENVIRONMENT?YES RECREATIONAL DRUG USE DRUG USE?NO LEARNING BARRIERS / SPECIAL NEEDS BARRIERS TO LEARNING?NO HEARING IMPAIRED?NO VISION IMPAIRED?NO COGNITIVELY IMPAIRED?NO READINESS TO LEARN?YES PAIN CLINIC PFS, CLERGY, PUBLIC HEALTH REFERRALS WAS THE PROVIDER NOTIFIED OF ANY PERTINENT INFO?YES HAS THE PATIENT BEEN EDUCATED REGARDING HIS/HER PLAN OF CARE?YES HAS THE PATIENT BEEN EDUCATED REGARDING PAIN, THE RISK FOR PAIN, THE IMPORTANCE OF EFFECTIVE PAIN MANAGEMENT, AND THE PAIN ASSESSMENT PROCESS?YES LATEX QUESTIONNAIRE LATEX ALLERGY : HAVE YOU EVER DEVELOPED ANY TYPE OF REACTION AFTER HANDLING LATEX PRODUCTS SUCH RUBBER GLOVES, CONDOMS, DIAPHRAGMS, BALLOONS, SOCKS, OR UNDERWEAR?NO LATEX ALLERGY : HAVE YOU EVER DEVELOPED ANY TYPE OF REACTION DURING OR AFTER DENTAL APPOINTMENT, VAGINAL/RECTAL EXAMINATION, SURGICAL PROCEDURE, OR ANY OTHER EXPOSURE?NO DATE ASKED : 10/03/2019 LATEX RISK : HAVE YOU EVER HAD ANY DIFFICULTY BREATHING OR HIVES AFTER EATING OR HANDLING ANY FRUITS, OR VEGETABLES; SUCH KIWI, BANANAS, STONE FRUITS, OR CHESTNUTSNO LATEX RISK : DO YOU HAVE A PREVIOUS PERSONAL HISTORY OF MORE THAN NINE SURGERIES, SPINA BIFIDA, OR REPEATED CATHERIZATIONS? NO LATEX RISK : ARE YOU FREQUENTLY EXPOSED TO LATEX PRODUCTS IN YOUR OCCUPATION?NO CAFFEINE CAFFEINE USE?YES PEPSI DAILY ADVANCE DIRECTIVE ADVANCE DIRECTIVE DISCUSSED WITH PATIENT:YES PT DOES NOT HAVE ANY HCP AND DECLINES INFO AT THIS TIME SPIRITISM [id number] MARITAL STATUS: SINGLE. ALCOHOL SCREENING DID YOU HAVE A DRINK CONTAINING ALCOHOL IN THE PAST YEAR?NO POINTS0 INTERPRETATIONNEGATIVE OCCUPATION: RETIRED. HOSPITALIZATION/MAJOR DIAGNOSTIC PROCEDURE NO HOSPITALIZATION HISTORY. REVIEW OF SYSTEMS REVIEWED BY: PROVIDER: JAZIEL RIVAS . CONSTITUTIONAL: ANY CHANGE IN YOUR MEDICAL CONDITION? NO . CHILLS NO . FEVER NO . INFECTION: DO YOU HAVE NEW INFECTIONS? NO . DO YOU HAVE HISTORY OF MRSA? NO . MUSCULOSKELETAL: ANY NEW PATTERNS OF PAIN OR NUMBNESS? YES,PAIN HAD IMPROVED POST INJECTION . GASTROENTEROLOGY: ANY NEW CHANGE IN BOWEL CONTROL? NO . GENITOURINARY: ANY NEW CHANGE IN BLADDER CONTROL? NO . IS THERE A CHANCE YOU COULD BE ? NO . HEMATOLOGY/LYMPH: DO YOU TAKE ANY BLOOD THINNERS? (FOR EXAMPLE- COUMADIN, PLAVIX, AGGRENOX, PLATEL, PRADAXA, OR XARELTO) NO . WHEN WAS YOUR LAST DOSE? DATE: TIME: . NEUROLOGY: HAVE YOU FALLEN IN THE PAST 12 MONTHS? YES, SLIPPED ON WET STAIRS AND ENTIRE BACK SIDE PAINFUL AFTERWARDS. . ANY NEW EXTREMITY NUMBNESS OR WEAKNESS? NO . CARDIOLOGY: DO YOU HAVE A PACEMAKER OR DEFIBRILLATOR? NO . RESPIRATORY: HAVE YOU BEEN SICK IN THE PAST WEEK? NO . FEVER NO . FLU LIKE SYMPTOMS? NO . COUGH NO . INTEGUMENTARY: DO YOU HAVE ANY RASHES OR OPEN SORES? NO . ALLERGIC/IMMUNO: ARE YOU ALLERGIC TO IV DYE? NO . ANY NEW ALLERGIES? NO . PSYCHIATRIC: DO YOU HAVE THOUGHTS OF HURTING YOURSELF OR SOMEONE ELSE? NO . ARE YOU ABUSED, NEGLECTED, OR IN AN UNSAFE ENVIRONMENT? NO . ENDOCRINOLOGY: ARE YOU DIABETIC? YES, PRE DIABETIC . OTHER: DO YOU NEED ANY PRESCRIPTIONS? NO . IF YES, PLEASE LIST: ____ . ANY NEW PROBLEMS WITH YOUR MEDICATIONS? NO . WHEN DID YOU LAST EAT? ____ . WHEN DID YOU LAST DRINK? ____ . WHAT DID YOU LAST DRINK? ____ . NAME OF PERSON DRIVING YOU HOME? ____ . DO YOU HAVE ANY OTHER QUESTIONS OR CONCERNS NO . VITAL SIGNS WT 265.6 LBS, HT 71 IN, BMI 37.04 INDEX, BP 132/76 MM HG, HR 106 /MIN, RR 18 /MIN, TEMP 97.1 F, OXYGEN SAT % 95%, SAFE IN ENV? (Y/N) YES, NA INITIALS AW 1434, REVIEWED BY: TYSON DUKES LPN. EXAMINATION GENERAL EXAMINATION: GENERALNO ACUTE DISTRESS, WELL NOURISHED AND HYDRATED. PSYCHAPPROPRIATE MOOD AND AFFECT . LUNGS:CLEAR TO AUSCULTATION BILATERALLY, NO WHEEZES, RHONCHI, RALES. HEART:NO MURMURS, REGULAR RATE AND RHYTHM. ASSESSMENTS MYALGIA, OTHER SITE - M79.18 (PRIMARY) TREATMENT MYALGIA, OTHER SITE CLINICAL NOTES: 62-YEAR-OLD MALE IN FOR POST TPI FOLLOW-UP. GIVEN PRESENTING SYMPTOMS AND RESULTS OF PHYSICAL EXAMINATION RECOMMENDED FOLLOW-UP IN ONE MONTH. PATIENT EXPRESSED UNDERSTANDING OF AND WAS IN AGREEMENT WITH TREATMENT PLAN. GIVEN TIME TO ASK QUESTIONS AND EXPRESS CONCERNS. PROCEDURE CODES FA211 ESTABILISHED PATIENT [facility] CHARGE DISPOSITION & COMMUNICATION FOLLOW UP 4 WEEKS (REASON: BACK PAIN) ELECTRONICALLY SIGNED BY ESTUARDO LICONA ON 10/30/2019 AT 10:52 AM EST DISCLAIMER : THIS IS A VISIT SUMMARY EXTRACTED FROM THE [employer] CHART. IT IS NOT A COPY OF THE [employer] PROGRESS NOTE. OSVALDOD
== END ==
LOC: M PAIN 14:00
PROVIDERS: ATTEND Family Medicine
DX: M79.18 Myalgia, other site (principal); E03.9 Hypothyroidism, unspecified; G62.9 Polyneuropathy, unspecified; R73.03 Prediabetes; E55.9 Vitamin D deficiency, unspecified; E78.5 Hyperlipidemia, unspecified; F17.210 Nicotine dependence, cigarettes, uncomplicated; Z79.891 Long term (current) use of opiate analgesic; Z79.84 Long term (current) use of oral hypoglycemic drugs; Z79.899 Other long term (current) drug therapy; Z88.0 Allergy status to penicillin

== ENCOUNTER → 2020-01-03 | Outpatient (CLI) | payer OTHER | LOC: M LABSMTC 09:52 | PROVIDERS: ATTEND Anesthesiology | DX: Z11.59 Encounter for screening for other viral diseases (principal) ==

== ENCOUNTER → 2020-01-06 | Outpatient (CLI) | payer OTHER ==
[~2020-01-06] MED LIST changes: +BUPIVACAINE HCL 0.25% 10ML VIAL As Ordered ONE; +BUPIVACAINE HCL 0.25% 30ML VIAL As Ordered ONE; +diazePAM 2 MG TAB As Ordered ONE; +oxyCODONE 5MG TAB As Ordered ONE
--- NOTE | 2020-01-07 03:48 | ECWPNPC ---
PATIENT NAME: YESSENIA PAUL : 1955 GENDER: MALE VISIT DATE: 01/06/2020 DISCHARGE DATE: 01/06/20 1104 VISIT LOCKED DATE TIME: PHYSICIAN: BERT MAGALLANES MD RESOURCE: BERT MAGALLANES MD REASON FOR APPOINTMENT 1. BILATERAL LOW BACK TPI PAT DONE- WILL BE LATE HISTORY OF PRESENT ILLNESS HISTORY OF PRESENT ILLNESS: PAIN THE PATIENT DESCRIBES THE PAIN... FALL RISK SCREENING: SCREENING :NO FALLS REPORTED IN THE LAST YEAR CURRENT MEDICATIONS TAKING LEVOTHYROXINE SODIUM 150 MCG TABLET 1 TABLET ON AN EMPTY STOMACH IN THE MORNING ORALLY ONCE A DAY, NOTES: 01/05/2020 0800 TAKING HYDROCODONE-ACETAMINOPHEN 7.5-325 MG TABLET 1 TABLET NEEDED ORALLY EVERY 6 HRS MDD 3, NOTES: 01/05/2020 0800 TAKING MAGNESIUM 250 MG TABLET 1 TABLET WITH A MEAL ORALLY ONCE A DAY, NOTES: 01/05/2020 0800 TAKING CHOLECALCIFEROL 1.25 MG (88967 UT) CAPSULE 1 CAPSULE ORALLY , NOTES: 01/05/2020 0800 TAKING METFORMIN HCL 500 MG TABLET 1 TABLET WITH A MEAL ORALLY ONCE A DAY, NOTES: 01/05/2020 0800 TAKING TRIAMCINOLONE ACETONIDE 0.1 % OINTMENT 1 APPLICATION EXTERNALLY TWICE A DAY, NOTES: 12/26/2019 1800 TAKING SIMVASTATIN 20 MG TABLET 1 TABLET IN THE EVENING ORALLY ONCE A DAY, NOTES: 01/05/2020 0800 NOT-TAKING IBUPROFEN 800 MG TABLET 1 TABLET WITH FOOD OR MILK NEEDED ORALLY BID NOT-TAKING SILDENAFIL CITRATE 100 MG TABLET 1 TABLET NEEDED ORALLY ONCE A DAY NOT-TAKING CELECOXIB 200 MG CAPSULE 1 CAPSULE WITH FOOD ORALLY ONCE A DAY MEDICATION LIST REVIEWED AND RECONCILED WITH THE PATIENT PAST MEDICAL HISTORY DEGENARATIVE DISC DISEASE SPONDYLOSIS SPINAL STENOSIS HYPOTHYROID NEUROPATHY PRE- DIABETIC VITAMIN D DEFICIENCY HYPERLIPIDEMIA ALLERGIES PENICILLIN (FOR ALLERGIES USE ONLY): RASH SURGICAL HISTORY HERNIA 12-17 EAR SURGERY 1958 TONSILS REMOVED 1961 FAMILY HISTORY FATHER: ALIVE MOTHER: ALIVE SIBLINGS: 4 YRS 5 BROTHER(S) , 1 SISTER(S) - HEALTHY. 3 SON(S) , 1 DAUGHTER(S) - HEALTHY. MOTHER HAD STOMACH CANCERFATHER HAD QUAD BYPASSDENIES FH OF SKIN CA OR MELANOMA. SOCIAL HISTORY GENERAL: TOBACCO USE ARE YOU A:CURRENT SMOKER ARE YOU INTERESTED IN QUITTING?READY TO QUIT GOING TO START THE PATCHES NEXT WEEK. PREVIOUS QUIT ATTEMPTS?YES, WITHIN THE LAST 6 MONTHS. COUNSELED THE PATIENT ON TOBACCO USE, CESSATION [id number]/04/2020 HOW MANY CIGARETTES A DAY DO YOU SMOKE?21-30 PATIENT COUNSELED ON THE DANGERS OF TOBACCO USE AND URGED TO QUIT:01/05/2020 ADDITIONAL FINDINGS: TOBACCO USERLIGHT CIGARETTE SMOKER ((1-9 CIGS/DAY) SMOKING CESSATION INFORMATION GIVEN11/27/2019 EDUCATED PT REGARDING THE EFFECTS OF SMOKING AND ENCOURAGED PT TO QUIT. DS LATEX QUESTIONNAIRE LATEX ALLERGY : HAVE YOU EVER DEVELOPED ANY TYPE OF REACTION AFTER HANDLING LATEX PRODUCTS SUCH RUBBER GLOVES, CONDOMS, DIAPHRAGMS, BALLOONS, SOCKS, OR UNDERWEAR?NO LATEX ALLERGY : HAVE YOU EVER DEVELOPED ANY TYPE OF REACTION DURING OR AFTER DENTAL APPOINTMENT, VAGINAL/RECTAL EXAMINATION, SURGICAL PROCEDURE, OR ANY OTHER EXPOSURE?NO LATEX RISK : HAVE YOU EVER HAD ANY DIFFICULTY BREATHING OR HIVES AFTER EATING OR HANDLING ANY FRUITS, OR VEGETABLES; SUCH KIWI, BANANAS, STONE FRUITS, OR CHESTNUTSNO LATEX RISK : DO YOU HAVE A PREVIOUS PERSONAL HISTORY OF MORE THAN NINE SURGERIES, SPINA BIFIDA, OR REPEATED CATHERIZATIONS? NO LATEX RISK : ARE YOU FREQUENTLY EXPOSED TO LATEX PRODUCTS IN YOUR OCCUPATION?NO DATE ASKED : 01/05/2020 ALCOHOL SCREENING DID YOU HAVE A DRINK CONTAINING ALCOHOL IN THE PAST YEAR?NO POINTS0 INTERPRETATIONNEGATIVE RECREATIONAL DRUG USE DRUG USE?NO CAFFEINE CAFFEINE USE?YES PEPSI DAILY CHEONDOISM [id number] [place] LANGUAGE LANGUAGES SPOKEN:SAMI EDUCATION LEVEL OF EDUCATION:COLLEGE LEARNING BARRIERS / SPECIAL NEEDS BARRIERS TO LEARNING?NO HEARING IMPAIRED?NO VISION IMPAIRED?NO COGNITIVELY IMPAIRED?NO READINESS TO LEARN?YES LEARNING PREFERENCES?NO LEARNING CAPABILITIES PRESENT?YES EMOTIONAL BARRIERS?NO SPECIAL DEVICES?NO DOMESTIC VIOLENCE DO YOU FEEL SAFE IN YOUR ENVIRONMENT?YES OCCUPATION: RETIRED. DIET: REGULAR. MARITAL STATUS: SINGLE. OTHERS AT HOME: NONE. NEW PATIENT PAIN DIARY TODAY'S VISIT 01/06/2020 PATIENT DESCRIBES PAIN :ACHING, BURNING, HAVE IT ALL THE TIME, IT COMES AND GOES, SHARP, STABBING FROM 0-10, WHAT LEVEL IS YOUR PAIN TODAY?5 PAIN CLINIC PFS, CLERGY, PUBLIC HEALTH REFERRALS WAS THE PROVIDER NOTIFIED OF ANY PERTINENT INFO?YES HAS THE PATIENT BEEN EDUCATED REGARDING HIS/HER PLAN OF CARE?YES HAS THE PATIENT BEEN EDUCATED REGARDING PAIN, THE RISK FOR PAIN, THE IMPORTANCE OF EFFECTIVE PAIN MANAGEMENT, AND THE PAIN ASSESSMENT PROCESS?YES ADVANCE DIRECTIVE ADVANCE DIRECTIVE DISCUSSED WITH PATIENT:YES PT DOES NOT HAVE ANY HCP AND DECLINES INFO AT THIS TIME HOSPITALIZATION/MAJOR DIAGNOSTIC PROCEDURE NO HOSPITALIZATION HISTORY. REVIEW OF SYSTEMS REVIEWED BY: PROVIDER: BERT MAGALLANES MD . CONSTITUTIONAL: ANY CHANGE IN YOUR MEDICAL CONDITION? NO . CHILLS NO . FEVER NO . INFECTION: DO YOU HAVE NEW INFECTIONS? NO . DO YOU HAVE HISTORY OF MRSA? NO . MUSCULOSKELETAL: ANY NEW PATTERNS OF PAIN OR NUMBNESS? NO . GASTROENTEROLOGY: ANY NEW CHANGE IN BOWEL CONTROL? NO . GENITOURINARY: ANY NEW CHANGE IN BLADDER CONTROL? NO . IS THERE A CHANCE YOU COULD BE ? NO . HEMATOLOGY/LYMPH: DO YOU TAKE ANY BLOOD THINNERS? (FOR EXAMPLE- COUMADIN, PLAVIX, AGGRENOX, PLATEL, PRADAXA, OR XARELTO) NO . WHEN WAS YOUR LAST DOSE? DATE: TIME: . NEUROLOGY: HAVE YOU FALLEN IN THE PAST 12 MONTHS? YES, IN SEPTEMBER FELL DOWN STAIRS, BRUISING IN BACK. NO REPORT ED. DS . ANY NEW EXTREMITY NUMBNESS OR WEAKNESS? NO . CARDIOLOGY: DO YOU HAVE A PACEMAKER OR DEFIBRILLATOR? NO . RESPIRATORY: HAVE YOU BEEN SICK IN THE PAST WEEK? NO . FEVER NO . FLU LIKE SYMPTOMS? NO . COUGH NO . INTEGUMENTARY: DO YOU HAVE ANY RASHES OR OPEN SORES? NO . ALLERGIC/IMMUNO: ARE YOU ALLERGIC TO IV DYE? NO . ANY NEW ALLERGIES? NO . PSYCHIATRIC: DO YOU HAVE THOUGHTS OF HURTING YOURSELF OR SOMEONE ELSE? NO . ARE YOU ABUSED, NEGLECTED, OR IN AN UNSAFE ENVIRONMENT? NO . ENDOCRINOLOGY: ARE YOU DIABETIC? YES, DOES NOT CHECK FSBS. DS, STATES HE IS PRE- DIABETIC . OTHER: DO YOU NEED ANY PRESCRIPTIONS? NO . IF YES, PLEASE LIST: ____ . ANY NEW PROBLEMS WITH YOUR MEDICATIONS? NO . WHEN DID YOU LAST EAT? 01/05/2020 1800 . WHEN DID YOU LAST DRINK? 01/06/2020 0400 . WHAT DID YOU LAST DRINK? WATER . NAME OF PERSON DRIVING YOU HOME? PATIENT STATES HE IS DRIVING HIMSELF HOME- PATIENT IS ATTEMPTING TO FIND A DRIVERJAMEE PEREYRA WILL BE DRIVING PATIENT HOME . DO YOU HAVE ANY OTHER QUESTIONS OR CONCERNS NO . VITAL SIGNS WT 268.0 LBS, HT 71 IN, BMI 37.37 INDEX, BP 123/78 MM HG, HR 112 /MIN, RR 18 /MIN, TEMP 97.4 F, OXYGEN SAT % 93%, NA INITIALS AW 0930. ASSESSMENTS MYALGIA, OTHER SITE - M79.18 (PRIMARY) PROCEDURES PN TRIGGER POINT INJECTION NO STEROIDS DATE OF PROCEDURE : PRE PROCEDURE DIAGNOSIS 1. MYALGIA 2. PAIN AT BILATERAL LOWER BACK AREA POST PROCEDURE DIAGNOSIS 1. MYALGIA 2. PAIN AT BILATERAL LOWER BACK AREA PROCEDURE TRIGGER POINT INJECTION AT BILATERAL LOWER BACK AREA SURGEON DR. BERT MAGALLANES NEWS CONTENT SPECIALIST NONE ANESTHESIA LOCAL PRE PROCEDURE NOTE 64-YEAR-OLD PATIENT WITH HISTORY OF CHRONIC PAIN AT BILATERAL LOWER BACK AREA. I EVALUATED THE PATIENT AND REVIEWED THE CHART. THERE IS EVIDENCE OF BANDS OF TISSUE WITH RESTRICTION OF MOVEMENT AND PRESENCE OF TRIGGER POINT AT THE BILATERAL LOWER BACK AREA. I WENT OVER THE RISKS, ALTERNATIVES, AND BENEFITS ASSOCIATED WITH THIS PROCEDURE. THE PATIENT WOULD LIKE TO PROCEED AND GAVE CONSENT TO PERFORM THE PROCEDURE. THE PATIENT DENIES UNEXPLAINABLE WEIGHT LOSS, FEVER, CHILLS, OR NEW CHANGES IN URINARY OR BOWEL CONTROL. THE PATIENT IS COVID-19 NEGATIVE DESCRIPTION OF PROCEDURE THE PATIENT WAS BROUGHT TO THE PROCEDURE ROOM AND PLACED IN THE SITTING POSITION. THE AREA WAS CLEANED WITH ALCOHOL. THE PROCEDURE WAS DONE USING ASEPTIC STERILE TECHNIQUES. I CHECKED LATERALITY AND THE LEVEL WHERE THE PROCEDURE WAS GOING TO BE PERFORMED WITH THE PATIENT AND THE SUPPORTING STAFF AT THE MOMENT OF THE TIME OUT IN THE PROCEDURE ROOM. USING A 25-GAUGE NEEDLE, TRIGGER POINTS WERE INJECTED INTO THE BILATERAL LOWER BACK AREA WITH A TOTAL OF 40 ML OF BUPIVACAINE 0.25%. AGREED WITH THE PATIENT THE PROCEDURE WAS DONE WITHOUT STEROIDS. THERE WAS NO EVIDENCE OF BLOOD, PARESTHESIA OR CEREBROSPINAL FLUID DURING THE PROCEDURE. THE PATIENT WAS SENT TO THE RECOVERY ROOM. THE PATIENT WAS MOVING THE EXTREMITIES AND DOING WELL. THERE WAS NO COMPLICATION DURING THE PROCEDURE POST PROCEDURE NOTE THE PATIENT WILL BE SEEN IN A FOLLOW UP IN THE NEXT FEW WEEKS. I AM LOOKING FOR LONG LASTING PAIN RELIEF FOR THE PATIENT WITH THIS INJECTION. INSTRUCTIONS WERE GIVEN, QUESTIONS WERE ANSWERED, AND THE PATIENT EXPRESSED UNDERSTANDING AND AGREES WITH THE PLAN. I, VANI KELLEY, DOCUMENTED THE ABOVE INFORMATION ACTING A SCRIBE FOR DR. MAGALLANES. I HAVE REVIEWED THE ABOVE DOCUMENT, WRITTEN BY FAMILIA VALLEJO, AND I VERIFY THAT IT IS ACCURATE PROCEDURE CODES 63625 INJ TRIGGER POINT 08/28 [facility] [place] DISPOSITION & COMMUNICATION FOLLOW UP F/UP WITH DIE CUT OPERATOR (REASON: POST-PROCEDURE F/UP-LOW BACK PAIN) ELECTRONICALLY SIGNED BY BERT MAGALLANES MD, MD ON 01/06/2020 AT 06:19 PM EDT DISCLAIMER : THIS IS A VISIT SUMMARY EXTRACTED FROM THE [employer] CHART. IT IS NOT A COPY OF THE [employer] PROGRESS NOTE. ABNER
== END ==
LOC: M PAIN 09:00
PROVIDERS: ATTEND Anesthesiology
DX: M79.18 Myalgia, other site (principal); E03.9 Hypothyroidism, unspecified; R73.03 Prediabetes; F17.210 Nicotine dependence, cigarettes, uncomplicated; Z88.0 Allergy status to penicillin; Z79.84 Long term (current) use of oral hypoglycemic drugs; Z79.899 Other long term (current) drug therapy

== ENCOUNTER → 2020-01-22 | Outpatient (CLI) | payer OTHER ==
[~2020-01-22] MED LIST changes: -BUPIVACAINE HCL 0.25% 10ML VIAL As Ordered ONE; -BUPIVACAINE HCL 0.25% 30ML VIAL As Ordered ONE; -diazePAM 2 MG TAB As Ordered ONE; -oxyCODONE 5MG TAB As Ordered ONE
--- NOTE | 2020-01-24 03:51 | ECWPNPC ---
PATIENT NAME: YESSENIA PAUL : 1955 GENDER: MALE VISIT DATE: 01/22/2020 DISCHARGE DATE: 01/22/20 1045 VISIT LOCKED DATE TIME: PHYSICIAN: MARCO ANTONIO VERA RESOURCE: MARCO ANTONIO VERA REASON FOR APPOINTMENT 1. POST TPI HISTORY OF PRESENT ILLNESS GENERAL: - 64-YEAR-OLD MALE IN FOR POST TPI FOLLOW-UP. HE FEELS THE PROCEDURE WAS EFFECTIVE OVERALL RATING HIS PAIN PREPROCEDURE AT AN 8-10 OUT OF 10 AND POSTPROCEDURE AT A 1-2 OUT OF 10. HE FURTHER STATES THE PROCEDURE CONTINUES TO HELP HIM TODAY. FALL RISK SCREENING: SCREENING :ONE FALL WITH INJURY IN THE PAST YEAR PT STATES THAT HE FELL DOWN THE STAIRS WHILE AT HOME, PT DID NOT REPORT TO ED, NO PROLONGED ISSUES WITH FALL. DS PAIN SCREENING: PATIENT HAS A COMPLAINT OF ACUTE OR CHRONIC PAIN :YES LOCATION OF PAIN:LOW BACK INTENSITY OF PAIN (SCALE OF 1 TO 10):1 WHAT DOES YOUR PAIN FEEL LIKE:ACHING, TENDER DURATION:PERIODIC PAIN IS INREASED BY:ACTIVITIES PAIN IS DECREASED BY:OTHERS HOT SHOWER, HEAT NURSING NOTE: -. PAIN CENTER INTAKE QUESTIONS: DO YOU HAVE A HISTORY OF MRSA? :NO DO YOU TAKE A BLOOD THINNERS? :NO DO YOU HAVE ANY BLEEDING DISORDERS? :NO ANY NEW NUMBNESS OR WEAKNESS IN YOUR LEGS OR ARMS? :NO ANY PACEMAKER,DEFIBRILLATOR, OR DORSAL COLUMN STIMULATOR? :NO DO YOU HAVE ANY RASHES OR OPEN SORES? :NO ARE YOU ALLERGIC TO IV DYE? :NO ARE YOU DIABETIC? :YES MANAGED WITH ORAL MEDS ANY NEW PROBLEMS WITH YOUR MEDICATIONS? :NO HAVE YOU RECEIVED A VACCINE IN THE PAST 30 DAYS? :NO DO YOU PLAN TO RECEIVE A VACCINE IN THE NEXT 21 DAYS? :NO DO YOU NEED ANY PRESCRIPTION? :NO DO YOU TAKE ANY IMMUNOSUPPRESSIVE MEDICATIONS? :NO CURRENT MEDICATIONS TAKING LEVOTHYROXINE SODIUM 150 MCG TABLET 1 TABLET ON AN EMPTY STOMACH IN THE MORNING ORALLY ONCE A DAY TAKING HYDROCODONE-ACETAMINOPHEN 7.5-325 MG TABLET 1 TABLET NEEDED ORALLY EVERY 6 HRS MDD 3 TAKING MAGNESIUM 250 MG TABLET 1 TABLET WITH A MEAL ORALLY ONCE A DAY TAKING CHOLECALCIFEROL 1.25 MG (71575 UT) CAPSULE 1 CAPSULE ORALLY TAKING METFORMIN HCL 500 MG TABLET 1 TABLET WITH A MEAL ORALLY ONCE A DAY TAKING TRIAMCINOLONE ACETONIDE 0.1 % OINTMENT 1 APPLICATION EXTERNALLY TWICE A DAY TAKING SIMVASTATIN 20 MG TABLET 1 TABLET IN THE EVENING ORALLY ONCE A DAY NOT-TAKING IBUPROFEN 800 MG TABLET 1 TABLET WITH FOOD OR MILK NEEDED ORALLY BID NOT-TAKING SILDENAFIL CITRATE 100 MG TABLET 1 TABLET NEEDED ORALLY ONCE A DAY NOT-TAKING CELECOXIB 200 MG CAPSULE 1 CAPSULE WITH FOOD ORALLY ONCE A DAY MEDICATION LIST REVIEWED AND RECONCILED WITH THE PATIENT PAST MEDICAL HISTORY DEGENARATIVE DISC DISEASE SPONDYLOSIS SPINAL STENOSIS HYPOTHYROID NEUROPATHY PRE- DIABETIC VITAMIN D DEFICIENCY HYPERLIPIDEMIA ALLERGIES PENICILLIN (FOR ALLERGIES USE ONLY): RASH SURGICAL HISTORY HERNIA 12-17 EAR SURGERY 1958 TONSILS REMOVED 1961 FAMILY HISTORY FATHER: ALIVE MOTHER: ALIVE SIBLINGS: 4 YRS 5 BROTHER(S) , 1 SISTER(S) - HEALTHY. 3 SON(S) , 1 DAUGHTER(S) - HEALTHY. MOTHER HAD STOMACH CANCERFATHER HAD QUAD BYPASSDENIES FH OF SKIN CA OR MELANOMA. SOCIAL HISTORY GENERAL: TOBACCO USE ARE YOU A:CURRENT SMOKER ARE YOU INTERESTED IN QUITTING?READY TO QUIT GOING TO START THE PATCHES NEXT WEEK. PREVIOUS QUIT ATTEMPTS?YES, WITHIN THE LAST 6 MONTHS. COUNSELED THE PATIENT ON TOBACCO USE, CESSATION [id number]/04/2020 HOW MANY CIGARETTES A DAY DO YOU SMOKE?- PATIENT COUNSELED ON THE DANGERS OF TOBACCO USE AND URGED TO QUIT:01/22/2020 ADDITIONAL FINDINGS: TOBACCO USERLIGHT CIGARETTE SMOKER ((1-9 CIGS/DAY) SMOKING CESSATION INFORMATION GIVEN11/27/2019 EDUCATED PT REGARDING THE EFFECTS OF SMOKING AND ENCOURAGED PT TO QUIT. DS LATEX QUESTIONNAIRE LATEX ALLERGY : HAVE YOU EVER DEVELOPED ANY TYPE OF REACTION AFTER HANDLING LATEX PRODUCTS SUCH RUBBER GLOVES, CONDOMS, DIAPHRAGMS, BALLOONS, SOCKS, OR UNDERWEAR?NO LATEX ALLERGY : HAVE YOU EVER DEVELOPED ANY TYPE OF REACTION DURING OR AFTER DENTAL APPOINTMENT, VAGINAL/RECTAL EXAMINATION, SURGICAL PROCEDURE, OR ANY OTHER EXPOSURE?NO LATEX RISK : HAVE YOU EVER HAD ANY DIFFICULTY BREATHING OR HIVES AFTER EATING OR HANDLING ANY FRUITS, OR VEGETABLES; SUCH KIWI, BANANAS, STONE FRUITS, OR CHESTNUTSNO LATEX RISK : DO YOU HAVE A PREVIOUS PERSONAL HISTORY OF MORE THAN NINE SURGERIES, SPINA BIFIDA, OR REPEATED CATHERIZATIONS? NO LATEX RISK : ARE YOU FREQUENTLY EXPOSED TO LATEX PRODUCTS IN YOUR OCCUPATION?NO DATE ASKED : 01/22/2020 ALCOHOL SCREENING DID YOU HAVE A DRINK CONTAINING ALCOHOL IN THE PAST YEAR?NO POINTS0 INTERPRETATIONNEGATIVE RECREATIONAL DRUG USE DRUG USE?NO CAFFEINE CAFFEINE USE?YES PEPSI DAILY SHINTO [id number] EPISCOPAL LANGUAGE LANGUAGES SPOKEN:SPANISH EDUCATION LEVEL OF EDUCATION:COLLEGE LEARNING BARRIERS / SPECIAL NEEDS BARRIERS TO LEARNING?NO HEARING IMPAIRED?NO VISION IMPAIRED?NO COGNITIVELY IMPAIRED?NO READINESS TO LEARN?YES LEARNING PREFERENCES?NO LEARNING CAPABILITIES PRESENT?YES EMOTIONAL BARRIERS?NO SPECIAL DEVICES?NO DOMESTIC VIOLENCE DO YOU FEEL SAFE IN YOUR ENVIRONMENT?YES OCCUPATION: RETIRED. DIET: REGULAR. MARITAL STATUS: SINGLE. OTHERS AT HOME: NONE. NEW PATIENT PAIN DIARY PATIENT DESCRIBES PAIN :ACHING, BURNING, HAVE IT ALL THE TIME, IT COMES AND GOES, SHARP, STABBING FROM 0-10, WHAT LEVEL IS YOUR PAIN TODAY?5 PAIN CLINIC PFS, CLERGY, PUBLIC HEALTH REFERRALS WAS THE PROVIDER NOTIFIED OF ANY PERTINENT INFO?YES HAS THE PATIENT BEEN EDUCATED REGARDING HIS/HER PLAN OF CARE?YES HAS THE PATIENT BEEN EDUCATED REGARDING PAIN, THE RISK FOR PAIN, THE IMPORTANCE OF EFFECTIVE PAIN MANAGEMENT, AND THE PAIN ASSESSMENT PROCESS?YES ADVANCE DIRECTIVE ADVANCE DIRECTIVE DISCUSSED WITH PATIENT:YES PT DOES NOT HAVE ANY HCP AND DECLINES INFO AT THIS TIME HOSPITALIZATION/MAJOR DIAGNOSTIC PROCEDURE NO HOSPITALIZATION HISTORY. REVIEW OF SYSTEMS CONSTITUTIONAL: ANY RECENT FEVER OR ILLNESS NO . CHILLS NO . GASTROENTEROLOGY: BOWEL INCONTINENCE NO . ANY NEW CHANGE IN BOWEL CONTROL? NO . ABDOMINAL PAIN NO . CONSTIPATION NO . GENITOURINARY: ANY NEW CHANGE IN BLADDER CONTROL? NO . IS THERE A CHANCE YOU COULD BE ? NO . URINARY INCONTINENCE NO . CARDIOLOGY: CHEST PRESSURE NO . CHEST PAIN NO . RESPIRATORY: COUGH NO . SHORTNESS OF BREATH NO . VITAL SIGNS WT 265.2 LBS, HT 71 IN, BMI 36.98 INDEX, BP 118/79 MM HG, HR 108 /MIN, RR 20 /MIN, TEMP 96.0 F, OXYGEN SAT % 95%, SAFE IN ENV? (Y/N) Y, NA INITIALS TL 1013, REVIEWED BY: MARGARETH. EXAMINATION GENERAL EXAMINATION: GENERALNO ACUTE DISTRESS, WELL NOURISHED AND HYDRATED. PSYCHAPPROPRIATE MOOD AND AFFECT . LUNGS:CLEAR TO AUSCULTATION BILATERALLY, NO WHEEZES, RHONCHI, RALES. HEART:NO MURMURS, REGULAR RATE AND RHYTHM. ASSESSMENTS MYALGIA, OTHER SITE - M79.18 (PRIMARY) TREATMENT MYALGIA, OTHER SITE CLINICAL NOTES: 64-YEAR-OLD MALE IN FOR POST TPI FOLLOW-UP. GIVEN PRESENTING SYMPTOMS AND RESULTS OF PHYSICAL EXAMINATION RECOMMEND FOLLOW-UP IN 2 MONTHS. DISCUSSED POTENTIAL TRIGGER POINT INJECTIONS FOR PATIENT'S NECK AND ENCOURAGED PATIENT GET REFERRAL FROM HIS PCP FOR THIS. PATIENT HAS EXPRESSED UNDERSTANDING OF AND WAS IN AGREEMENT WITH TREATMENT PLAN. GIVEN TIME TO ASK QUESTIONS AND EXPRESS CONCERNS. PREVENTIVE MEDICINE PAIN CLINIC TEACHING: THE PATIENT HAS BEEN EDUCATED REGARDING PAIN, THE RISK FOR PAIN, THE IMPORTANCE OF EFFECTIVE PAIN MANAGEMENT, AND THE PAIN ASSESSMENT PROCESS. : REVIEWED AND DISCUSSED TREATMENT PLAN WITH PT, PT ACKNOWLEDGES UNDERSTANDING. DS PROCEDURE CODES FA211 ESTABILISHED PATIENT [facility] CHARGE DISPOSITION & COMMUNICATION FOLLOW UP 2 MONTHS (REASON: MYALGIA) ELECTRONICALLY SIGNED BY ESTUARDO LICONA ON 01/23/2020 AT 07:58 AM EDT DISCLAIMER : THIS IS A VISIT SUMMARY EXTRACTED FROM THE [employer] CHART. IT IS NOT A COPY OF THE [employer] PROGRESS NOTE. ABNER
== END ==
LOC: M PAIN 10:00
PROVIDERS: ATTEND Family Medicine
DX: M79.18 Myalgia, other site (principal)

== ENCOUNTER → 2020-02-11 | Outpatient (CLI) | payer OTHER ==
--- NOTE | 2020-02-13 01:24 | ECWPNPC ---
PATIENT NAME: YESSENIA PAUL : 1955 GENDER: MALE VISIT DATE: 02/11/2020 DISCHARGE DATE: 02/11/20 1346 VISIT LOCKED DATE TIME: PHYSICIAN: MARCO ANTONIO VERA RESOURCE: MARCO ANTONIO VERA REASON FOR APPOINTMENT 1. NBP-NECK HISTORY OF PRESENT ILLNESS GENERAL: - 64-YEAR-OLD MALE IN FOR EVALUATION OF NEW BODY PART. PATIENT HAS COMPLAINTS OF NECK AND SHOULDER PAIN SINCE 2016. HE RATES HIS PAIN CURRENTLY AT A 6 OUT OF 10 AND DESCRIBES IT ACHING. FALL RISK SCREENING: SCREENING :NO FALLS REPORTED IN THE LAST YEAR PAIN SCREENING: PATIENT HAS A COMPLAINT OF ACUTE OR CHRONIC PAIN :YES LOCATION OF PAIN:NECK, LEFT SHOULDER, RIGHT SHOULDER WHAT DOES YOUR PAIN FEEL LIKE: STIFFNESS PAIN IS INCREASED BY: UP AND DOWN MOTION OF HEAD PAIN IS DECREASED BY: HOT SHOWER NURSING NOTE: -. PAIN CENTER INTAKE QUESTIONS: DO YOU HAVE A HISTORY OF MRSA? :NO DO YOU TAKE A BLOOD THINNERS? :NO DO YOU HAVE ANY BLEEDING DISORDERS? :NO ANY NEW NUMBNESS OR WEAKNESS IN YOUR LEGS OR ARMS? :NO ANY PACEMAKER,DEFIBRILLATOR, OR DORSAL COLUMN STIMULATOR? :NO DO YOU HAVE ANY RASHES OR OPEN SORES? :NO ARE YOU ALLERGIC TO IV DYE? :NO ARE YOU DIABETIC? :YES ANY NEW PROBLEMS WITH YOUR MEDICATIONS? :NO HAVE YOU RECEIVED A VACCINE IN THE PAST 30 DAYS? :NO DO YOU PLAN TO RECEIVE A VACCINE IN THE NEXT 21 DAYS? :NO DO YOU NEED ANY PRESCRIPTION? :NO DO YOU TAKE ANY IMMUNOSUPPRESSIVE MEDICATIONS? :NO IS THERE A CHANCE YOU COULD BE ? :NO ARE YOU BREAST FEEDING? :NO CURRENT MEDICATIONS TAKING LEVOTHYROXINE SODIUM 150 MCG TABLET 1 TABLET ON AN EMPTY STOMACH IN THE MORNING ORALLY ONCE A DAY TAKING HYDROCODONE-ACETAMINOPHEN 7.5-325 MG TABLET 1 TABLET NEEDED ORALLY EVERY 6 HRS MDD 3 TAKING MAGNESIUM 250 MG TABLET 1 TABLET WITH A MEAL ORALLY ONCE A DAY TAKING CHOLECALCIFEROL 1.25 MG (92696 UT) CAPSULE 1 CAPSULE ORALLY TAKING METFORMIN HCL 500 MG TABLET 1 TABLET WITH A MEAL ORALLY ONCE A DAY TAKING TRIAMCINOLONE ACETONIDE 0.1 % OINTMENT 1 APPLICATION EXTERNALLY TWICE A DAY TAKING SIMVASTATIN 20 MG TABLET 1 TABLET IN THE EVENING ORALLY ONCE A DAY NOT-TAKING IBUPROFEN 800 MG TABLET 1 TABLET WITH FOOD OR MILK NEEDED ORALLY BID NOT-TAKING SILDENAFIL CITRATE 100 MG TABLET 1 TABLET NEEDED ORALLY ONCE A DAY NOT-TAKING CELECOXIB 200 MG CAPSULE 1 CAPSULE WITH FOOD ORALLY ONCE A DAY MEDICATION LIST REVIEWED AND RECONCILED WITH THE PATIENT PAST MEDICAL HISTORY DEGENARATIVE DISC DISEASE SPONDYLOSIS SPINAL STENOSIS HYPOTHYROID NEUROPATHY PRE- DIABETIC VITAMIN D DEFICIENCY HYPERLIPIDEMIA ALLERGIES PENICILLIN (FOR ALLERGIES USE ONLY): RASH - ALLERGY SURGICAL HISTORY HERNIA 12- EAR SURGERY 1958 TONSILS REMOVED 1961 FAMILY HISTORY FATHER: ALIVE MOTHER: ALIVE SIBLINGS: 4 YRS 5 BROTHER(S) , 1 SISTER(S) - HEALTHY. 3 SON(S) , 1 DAUGHTER(S) - HEALTHY. MOTHER HAD STOMACH CANCERFATHER HAD QUAD BYPASSDENIES FH OF SKIN CA OR MELANOMA. SOCIAL HISTORY GENERAL: TOBACCO USE ARE YOU A:CURRENT SMOKER HOW MANY CIGARETTES A DAY DO YOU SMOKE?21-30 ARE YOU INTERESTED IN QUITTING?READY TO QUIT GOING TO START THE PATCHES NEXT WEEK. ADDITIONAL FINDINGS: TOBACCO USERLIGHT CIGARETTE SMOKER ((1-9 CIGS/DAY) PATIENT COUNSELED ON THE DANGERS OF TOBACCO USE AND URGED TO QUIT:01/22/2020 COUNSELED THE PATIENT ON TOBACCO USE, CESSATION [id number]/04/2020 SMOKING CESSATION INFORMATION GIVEN11/27/2019 EDUCATED PT REGARDING THE EFFECTS OF SMOKING AND ENCOURAGED PT TO QUIT. DS PREVIOUS QUIT ATTEMPTS?YES, WITHIN THE LAST 6 MONTHS. LATEX QUESTIONNAIRE LATEX ALLERGY : HAVE YOU EVER DEVELOPED ANY TYPE OF REACTION AFTER HANDLING LATEX PRODUCTS SUCH RUBBER GLOVES, CONDOMS, DIAPHRAGMS, BALLOONS, SOCKS, OR UNDERWEAR?NO LATEX ALLERGY : HAVE YOU EVER DEVELOPED ANY TYPE OF REACTION DURING OR AFTER DENTAL APPOINTMENT, VAGINAL/RECTAL EXAMINATION, SURGICAL PROCEDURE, OR ANY OTHER EXPOSURE?NO LATEX RISK : HAVE YOU EVER HAD ANY DIFFICULTY BREATHING OR HIVES AFTER EATING OR HANDLING ANY FRUITS, OR VEGETABLES; SUCH KIWI, BANANAS, STONE FRUITS, OR CHESTNUTSNO LATEX RISK : DO YOU HAVE A PREVIOUS PERSONAL HISTORY OF MORE THAN NINE SURGERIES, SPINA BIFIDA, OR REPEATED CATHERIZATIONS? NO LATEX RISK : ARE YOU FREQUENTLY EXPOSED TO LATEX PRODUCTS IN YOUR OCCUPATION?NO DATE ASKED : 02/11/2020 ALCOHOL SCREENING DID YOU HAVE A DRINK CONTAINING ALCOHOL IN THE PAST YEAR?NO POINTS0 INTERPRETATIONNEGATIVE RECREATIONAL DRUG USE DRUG USE?NO CAFFEINE CAFFEINE USE?YES PEPSI DAILY CATHOLIC [id number] JEWISH LANGUAGE LANGUAGES SPOKEN:NAMIBIAN EDUCATION LEVEL OF EDUCATION:COLLEGE LEARNING BARRIERS / SPECIAL NEEDS BARRIERS TO LEARNING?NO HEARING IMPAIRED?NO VISION IMPAIRED?NO COGNITIVELY IMPAIRED?NO READINESS TO LEARN?YES LEARNING PREFERENCES?NO LEARNING CAPABILITIES PRESENT?YES EMOTIONAL BARRIERS?NO SPECIAL DEVICES?NO EDGE BANDER OPERATOR NEEDED?NO DOMESTIC VIOLENCE DO YOU FEEL SAFE IN YOUR ENVIRONMENT?YES OCCUPATION: RETIRED. DIET: REGULAR. MARITAL STATUS: SINGLE. OTHERS AT HOME: NONE. NEW PATIENT PAIN DIARY PATIENT DESCRIBES PAIN :ACHING, BURNING, HAVE IT ALL THE TIME, IT COMES AND GOES, SHARP, STABBING FROM 0-10, WHAT LEVEL IS YOUR PAIN TODAY?5 PAIN CLINIC PFS, CLERGY, PUBLIC HEALTH REFERRALS WAS THE PROVIDER NOTIFIED OF ANY PERTINENT INFO?YES HAS THE PATIENT BEEN EDUCATED REGARDING HIS/HER PLAN OF CARE?YES HAS THE PATIENT BEEN EDUCATED REGARDING PAIN, THE RISK FOR PAIN, THE IMPORTANCE OF EFFECTIVE PAIN MANAGEMENT, AND THE PAIN ASSESSMENT PROCESS?YES ADVANCE DIRECTIVE ADVANCE DIRECTIVE DISCUSSED WITH PATIENT:YES PT DOES NOT HAVE ANY HCP AND DECLINES INFO AT THIS TIME HOSPITALIZATION/MAJOR DIAGNOSTIC PROCEDURE NO HOSPITALIZATION HISTORY. REVIEW OF SYSTEMS CONSTITUTIONAL: ANY RECENT FEVER NO . CHILLS NO . GASTROENTEROLOGY: BOWEL INCONTINENCE NO . ANY NEW CHANGE IN BOWEL CONTROL? NO . HISTORY OF UNUSUAL ABDOMINAL PAIN OR CRAMPING NOT MENTIONED NO . CONSTIPATION NO . GENITOURINARY: ANY NEW CHANGE IN BLADDER CONTROL? NO . URINARY INCONTINENCE NO . CARDIOLOGY: NEW CHEST PRESSURE NO . HISTORY OF CHEST PAIN,IRREGULAR HEART BEAT NOT MENTIONED NO . RESPIRATORY: COUGH NO . SHORTNESS OF BREATH NO . VITAL SIGNS WT 270.8 LBS, HT 71 IN, BMI 37.76 INDEX, BP 116/72 MM HG, HR 96 /MIN, RR 17 /MIN, TEMP 97.3 F, OXYGEN SAT % 95, SAFE IN ENV? (Y/N) GRACE. RICHARD CORONA LPN II @ 1326. EXAMINATION GENERAL EXAMINATION: GENERALNO ACUTE DISTRESS, WELL NOURISHED AND HYDRATED. PSYCHAPPROPRIATE MOOD AND AFFECT . NECK:BANDS OF RESTRICTIVE TISSUE NOTED OVER TRIGGER POINTS OF THE NECK AND SHOULDERS BILATERALLY SURROUNDING SKIN SHOWS NO ERYTHEMA, ECCHYMOSIS, INCREASED WARMTH, AND/OR SKIN ERUPTIONS NOTED. . LUNGS:CLEAR TO AUSCULTATION BILATERALLY, NO WHEEZES, RHONCHI, RALES. HEART:NO MURMURS, REGULAR RATE AND RHYTHM. ASSESSMENTS MYALGIA, OTHER SITE - M79.18 (PRIMARY) TREATMENT MYALGIA, OTHER SITE NOTES: BILATERAL NECK AND SHOULDER TPI. CLINICAL NOTES: 64-YEAR-OLD MALE IN FOR NEW BODY PARTS EVALUATION. GIVEN PRESENTING SYMPTOMS AND RESULTS OF PHYSICAL EXAMINATION RECOMMENDED TRIGGER POINT INJECTIONS OF THE NECK AND SHOULDER BILATERALLY WITH POST PROCEDURAL FOLLOW-UP. PATIENT HAS EXPRESSED UNDERSTANDING OF AND WAS IN AGREEMENT WITH TREATMENT PLAN. GIVEN TIME TO ASK QUESTIONS AND EXPRESS CONCERNS. PROCEDURE CODES FA211 ESTABILISHED PATIENT [facility] CHARGE DISPOSITION & COMMUNICATION FOLLOW UP POSTPROCEDURE (REASON: BILATERAL NECK AND SHOULDER TPI) ELECTRONICALLY SIGNED BY ESTUARDO LICONA ON 02/12/2020 AT 08:52 AM EDT DISCLAIMER : THIS IS A VISIT SUMMARY EXTRACTED FROM THE [employer] CHART. IT IS NOT A COPY OF THE [employer] PROGRESS NOTE. ABNER
== END ==
LOC: M PAIN 13:15
PROVIDERS: ATTEND Family Medicine
DX: M79.18 Myalgia, other site (principal)

== ENCOUNTER → 2020-02-14 | Outpatient (CLI) | payer OTHER | LOC: M LABSMTC 11:37 | PROVIDERS: ATTEND Anesthesiology | DX: Z03.818 Encounter for observation for suspected exposure to other biological agents ruled out (principal) | CPT/HCPCS: C9803; U0003 ==

== ENCOUNTER → 2020-02-17 | Outpatient (CLI) | payer OTHER ==
[~2020-02-17] MED LIST changes: +BUPIVACAINE HCL 0.25% 10ML VIAL As Ordered ONE; +BUPIVACAINE HCL 0.25% 30ML VIAL As Ordered ONE; +TRIAMCINOLONE ACETONIDE SUSP 40 MG/ML VIAL (J3301) As Ordered ONE; +diazePAM 2 MG TAB As Ordered ONE; +oxyCODONE 5MG TAB As Ordered ONE
--- NOTE | 2020-02-17 23:43 | ECWPNPC ---
PATIENT NAME: YESSENIA PAUL : 1955 GENDER: MALE VISIT DATE: 02/17/2020 DISCHARGE DATE: 02/17/20 1325 VISIT LOCKED DATE TIME: PHYSICIAN: BERT MAGALLANES MD RESOURCE: BERT MAGALLANES MD REASON FOR APPOINTMENT 1. JUNAID NECK AND SHOULDER TPI/ NAME ALERT/PAT DONE HISTORY OF PRESENT ILLNESS GENERAL: -. FALL RISK SCREENING: SCREENING :ONE FALL WITHOUT INJURY IN THE PAST YEAR FELL DOWN THE STAIRS [place] HE WAS JUST SORE AFTER PAIN SCREENING: PATIENT HAS A COMPLAINT OF ACUTE OR CHRONIC PAIN :YES LOCATION OF PAIN:NECK, BOTH SHOULDERS INTENSITY OF PAIN (SCALE OF 1 TO 10):8 WHAT DOES YOUR PAIN FEEL LIKE:ACHING, CONTINOUS, SORE DURATION:CONTINOUS, CONSTANT, STEADY PAIN IS INCREASED BY: BEING ON THE COMPUTER PAIN IS DECREASED BY: HEAT, HOT SHOWER NURSING NOTE: -. PAIN CENTER INTAKE QUESTIONS: DO YOU HAVE A HISTORY OF MRSA? :NO DO YOU TAKE A BLOOD THINNERS? :NO DO YOU HAVE ANY BLEEDING DISORDERS? :NO ANY NEW NUMBNESS OR WEAKNESS IN YOUR LEGS OR ARMS? :NO ANY PACEMAKER,DEFIBRILLATOR, OR DORSAL COLUMN STIMULATOR? :NO DO YOU HAVE ANY RASHES OR OPEN SORES? :YES "RASH" ON BOTH SHINS ARE YOU ALLERGIC TO IV DYE? :NO ARE YOU DIABETIC? :YES DOESN'T DO FINGERSTICKS ANY NEW PROBLEMS WITH YOUR MEDICATIONS? :NO HAVE YOU RECEIVED A VACCINE IN THE PAST 30 DAYS? :NO DO YOU PLAN TO RECEIVE A VACCINE IN THE NEXT 21 DAYS? :NO DO YOU TAKE ANY IMMUNOSUPPRESSIVE MEDICATIONS? :YES STEROID CREAM ANY HISTORY OF SEIZURES? :NO ANY HISTORY OF CARDIAC ISSUES OR EVENTS? :NO DO YOU HAVE SLEEP APNEA? : NO. ANY RECENT HEAD INJURY? :NO DO YOU HAVE ANY NEW INFECTIONS? :NO IS THERE A CHANCE YOU COULD BE ? :NO ARE YOU BREAST FEEDING? :NO WHEN DID YOU LAST EAT? : - WHEN DID YOU LAST DRINK? : - WHAT DID YOU LAST DRINK? : - NAME OF PERSON DRIVING YOU HOME? : JAMEE DO YOU HAVE ANY OTHER QUESTIONS OR CONCERNS? : NO CURRENT MEDICATIONS TAKING LEVOTHYROXINE SODIUM 150 MCG TABLET 1 TABLET ON AN EMPTY STOMACH IN THE MORNING ORALLY ONCE A DAY, NOTES: 02/16/20 TAKING HYDROCODONE-ACETAMINOPHEN 7.5-325 MG TABLET 1 TABLET NEEDED ORALLY EVERY 6 HRS MDD 3, NOTES: 02/16/20 TAKING MAGNESIUM 250 MG TABLET 1 TABLET WITH A MEAL ORALLY ONCE A DAY, NOTES: 02/16/20 TAKING CHOLECALCIFEROL 1.25 MG (21505 UT) CAPSULE 1 CAPSULE ORALLY WEEKLY, NOTES: 02/16/20 TAKING METFORMIN HCL 500 MG TABLET 1 TABLET WITH A MEAL ORALLY ONCE A DAY, NOTES: 02/16/20 TAKING TRIAMCINOLONE ACETONIDE 0.1 % OINTMENT 1 APPLICATION EXTERNALLY TWICE A DAY, NOTES: 02/16/20 TAKING SIMVASTATIN 20 MG TABLET 1 TAB ORALLY DAILY, NOTES: 02/16/20 NOT-TAKING IBUPROFEN 800 MG TABLET 1 TABLET WITH FOOD OR MILK NEEDED ORALLY BID NOT-TAKING SILDENAFIL CITRATE 100 MG TABLET 1 TABLET NEEDED ORALLY ONCE A DAY NOT-TAKING CELECOXIB 200 MG CAPSULE 1 CAPSULE WITH FOOD ORALLY ONCE A DAY MEDICATION LIST REVIEWED AND RECONCILED WITH THE PATIENT PAST MEDICAL HISTORY DEGENARATIVE DISC DISEASE SPONDYLOSIS SPINAL STENOSIS HYPOTHYROID NEUROPATHY PRE- DIABETIC VITAMIN D DEFICIENCY HYPERLIPIDEMIA ALLERGIES PENICILLIN (FOR ALLERGIES USE ONLY): RASH - ALLERGY SURGICAL HISTORY HERNIA 12- EAR SURGERY 1958 TONSILS REMOVED 1961 FAMILY HISTORY FATHER: ALIVE MOTHER: ALIVE SIBLINGS: 4 YRS 5 BROTHER(S) , 1 SISTER(S) - HEALTHY. 3 SON(S) , 1 DAUGHTER(S) - HEALTHY. MOTHER HAD STOMACH CANCERFATHER HAD QUAD BYPASSDENIES FH OF SKIN CA OR MELANOMA. SOCIAL HISTORY GENERAL: TOBACCO USE ARE YOU A:CURRENT SMOKER ARE YOU INTERESTED IN QUITTING?READY TO QUIT GOING TO START THE PATCHES NEXT WEEK. PREVIOUS QUIT ATTEMPTS?YES, WITHIN THE LAST 6 MONTHS. COUNSELED THE PATIENT ON TOBACCO USE, CESSATION [id number]/04/2020 HOW MANY CIGARETTES A DAY DO YOU SMOKE?21-30 PATIENT COUNSELED ON THE DANGERS OF TOBACCO USE AND URGED TO QUIT:02/16/2020 ADDITIONAL FINDINGS: TOBACCO USERLIGHT CIGARETTE SMOKER ((1-9 CIGS/DAY) SMOKING CESSATION INFORMATION GIVEN11/27/2019 EDUCATED PT REGARDING THE EFFECTS OF SMOKING AND ENCOURAGED PT TO QUIT. DS LATEX QUESTIONNAIRE LATEX ALLERGY : HAVE YOU EVER DEVELOPED ANY TYPE OF REACTION AFTER HANDLING LATEX PRODUCTS SUCH RUBBER GLOVES, CONDOMS, DIAPHRAGMS, BALLOONS, SOCKS, OR UNDERWEAR?NO LATEX ALLERGY : HAVE YOU EVER DEVELOPED ANY TYPE OF REACTION DURING OR AFTER DENTAL APPOINTMENT, VAGINAL/RECTAL EXAMINATION, SURGICAL PROCEDURE, OR ANY OTHER EXPOSURE?NO LATEX RISK : HAVE YOU EVER HAD ANY DIFFICULTY BREATHING OR HIVES AFTER EATING OR HANDLING ANY FRUITS, OR VEGETABLES; SUCH KIWI, BANANAS, STONE FRUITS, OR CHESTNUTSNO LATEX RISK : DO YOU HAVE A PREVIOUS PERSONAL HISTORY OF MORE THAN NINE SURGERIES, SPINA BIFIDA, OR REPEATED CATHERIZATIONS? NO LATEX RISK : ARE YOU FREQUENTLY EXPOSED TO LATEX PRODUCTS IN YOUR OCCUPATION?NO DATE ASKED : 02/16/2020 ALCOHOL SCREENING DID YOU HAVE A DRINK CONTAINING ALCOHOL IN THE PAST YEAR?NO POINTS0 INTERPRETATIONNEGATIVE RECREATIONAL DRUG USE DRUG USE?NO CAFFEINE CAFFEINE USE?YES PEPSI DAILY SPIRITISM [id number] NONDENOMINATIONAL LANGUAGE LANGUAGES SPOKEN:ROMANIAN EDUCATION LEVEL OF EDUCATION:COLLEGE LEARNING BARRIERS / SPECIAL NEEDS BARRIERS TO LEARNING?NO HEARING IMPAIRED?NO VISION IMPAIRED?NO COGNITIVELY IMPAIRED?NO READINESS TO LEARN?YES LEARNING PREFERENCES?NO LEARNING CAPABILITIES PRESENT?YES EMOTIONAL BARRIERS?NO SPECIAL DEVICES?NO HEAVY DUTY DIESEL MECHANIC NEEDED?NO DOMESTIC VIOLENCE DO YOU FEEL SAFE IN YOUR ENVIRONMENT?YES OCCUPATION: RETIRED. DIET: REGULAR. MARITAL STATUS: SINGLE. OTHERS AT HOME: NONE. NEW PATIENT PAIN DIARY PATIENT DESCRIBES PAIN : ACHING, BURNING, HAVE IT ALL THE TIME, IT COMES AND GOES, SHARP, STABBING, FROM 0-10, WHAT LEVEL IS YOUR PAIN TODAY? 5. PAIN CLINIC PFS, CLERGY, PUBLIC HEALTH REFERRALS WAS THE PROVIDER NOTIFIED OF ANY PERTINENT INFO?YES HAS THE PATIENT BEEN EDUCATED REGARDING HIS/HER PLAN OF CARE?YES HAS THE PATIENT BEEN EDUCATED REGARDING PAIN, THE RISK FOR PAIN, THE IMPORTANCE OF EFFECTIVE PAIN MANAGEMENT, AND THE PAIN ASSESSMENT PROCESS?YES ADVANCE DIRECTIVE ADVANCE DIRECTIVE DISCUSSED WITH PATIENT:YES 02/16/2020 PT DOES NOT HAVE ANY ADVANCED DIRECTIVES AND HE DECLINED INFORMATION ON HCP AT THIS TIME HOSPITALIZATION/MAJOR DIAGNOSTIC PROCEDURE SURGERIES VITAL SIGNS WT 272 LBS, HT 71 IN, BMI 37.93 INDEX, BP 126/71 MM HG, HR 106 /MIN, RR 20 /MIN, TEMP 97.7 F, OXYGEN SAT % 93%, NA INITIALS SC 12:36. EXAMINATION GENERAL EXAMINATION: THE PATIENT IS ALERT, ORIENTED TIMES THREE AND COOPERATIVE. HEART SHOWS REGULAR RHYTHM, NO MURMURS AND NO GALLOPS. LUNGS ARE CLEAR TO AUSCULTATION. ASSESSMENTS MYALGIA, OTHER SITE - M79.18 (PRIMARY) PROCEDURES PAIN NURSING RECORD PRE-PROCEDURE IV SITE N/A, PRE-PROCEDURE ORAL MEDICATIONS OXYCODONE 5MG PO, VALIUM 2MG PO @ 1243 Cheko MINAYA RN BSN PROCEDURE IN ROOM 1215, PHYSICIAN IN ROOM 1304, START 1309, FINISH 1312, PHYSICIAN OUT OF ROOM 1315, OUT OF ROOM 1325, STEROID NONE, O2 RA, ECG N/A, PATIENT SHIELDED NO, SAFETY STRAP NO, PREP ALCOHOL, DR MAGALLANES, IV INFUSED N/A, DRESSING TEGADERM LOC: 1. ALERT, ORIENTED RESP: 1. REGULAR, NO DYSPNEA COLOR: 1. PINK SKIN: 1. WARM, DRY POSITION: 4. OTHER VITALS: 145/76, 94, 16, AMITA MINAYA 02/17/2020 1:20:55 PM > , 93% DISCHARGE: POST PAIN 10/06, DRESSING SITE NECK AND SHOULDERS CLEAN AND DRY, IV N/A, GAIT STEADY, TEACHING COMPLETED, PATIENT ACKNOWLEDGES UNDERSTANDING YES, PATIENT DISCHARGED AT 1325 PN TRIGGER POINT INJECTION NO STEROIDS PRE PROCEDURE DIAGNOSIS 1. MYALGIA 2. PAIN AT BILATERAL NECK AREA AND BILATERAL SHOULDER AREA POST PROCEDURE DIAGNOSIS 1. MYALGIA 2. PAIN AT BILATERAL NECK AREA AND BILATERAL SHOULDER AREA PROCEDURE TRIGGER POINT INJECTION AT BILATERAL NECK AREA AND BILATERAL SHOULDER AREA SURGEON DR. BERT MAGALLANES MOLD PRESS OPERATOR NONE ANESTHESIA LOCAL PRE PROCEDURE NOTE THE PATIENT HAS HISTORY OF CHRONIC PAIN AT LEFT AND RIGHT NECK AREA AND LEFT AND RIGHT SHOULDER AREA. I EVALUATED THE PATIENT AND REVIEWED THE CHART. THERE IS EVIDENCE OF BANDS OF TISSUE WITH RESTRICTION OF MOVEMENT AND PRESENCE OF TRIGGER POINT AT THE LEFT AND RIGHT NECK AREA AND LEFT AND NECK SHOULDER AREA. I WENT OVER THE RISKS, ALTERNATIVES, AND BENEFITS ASSOCIATED WITH THIS PROCEDURE. THE PATIENT WOULD LIKE TO PROCEED AND GAVE CONSENT TO PERFORM THE PROCEDURE. THE PATIENT DENIES UNEXPLAINABLE WEIGHT LOSS, FEVER, CHILLS, OR NEW CHANGES IN URINARY OR BOWEL CONTROL. THE PATIENT IS COVID-19 NEGATIVE DESCRIPTION OF PROCEDURE THE PATIENT WAS BROUGHT TO THE PROCEDURE ROOM AND PLACED IN THE SITTING POSITION. THE AREA WAS CLEANED WITH ALCOHOL. THE PROCEDURE WAS DONE USING ASEPTIC STERILE TECHNIQUES. I CHECKED LATERALITY AND THE LEVEL WHERE THE PROCEDURE WAS GOING TO BE PERFORMED WITH THE PATIENT AND THE SUPPORTING STAFF AT THE MOMENT OF THE TIME OUT IN THE PROCEDURE ROOM. USING A 25-GAUGE NEEDLE, TRIGGER POINTS WERE INJECTED INTO THE RIGHT AND LEFT NECK AREA AND RIGHT AND LEFT SHOULDER AREA WITH A TOTAL OF 40 ML OF BUPIVACAINE 0.25%. AGREED WITH THE PATIENT THE PROCEDURE WAS DONE WITHOUT STEROIDS. THERE WAS NO EVIDENCE OF BLOOD, PARESTHESIA OR CEREBROSPINAL FLUID DURING THE PROCEDURE. THE PATIENT WAS SENT TO THE RECOVERY ROOM. THE PATIENT WAS MOVING THE EXTREMITIES AND DOING WELL. THERE WAS NO COMPLICATION DURING THE PROCEDURE. EBL LESS THAN 5 ML POST PROCEDURE NOTE THE PROCEDURE DONE WAS DISCUSSED WITH THE PATIENT. THE PATIENT WILL BE SEEN IN A FOLLOW UP IN THE NEXT FEW WEEKS. I AM LOOKING FOR LONG LASTING PAIN RELIEF FOR THE PATIENT WITH THIS INTERVENTION. INSTRUCTIONS WERE GIVEN, QUESTIONS WERE ANSWERED, AND THE PATIENT EXPRESSED UNDERSTANDING AND AGREES WITH THE PLAN. I, VANI KELLEY, DOCUMENTED THE ABOVE INFORMATION ACTING A SCRIBE FOR DR. MAGALLANES. I HAVE REVIEWED THE ABOVE DOCUMENT, WRITTEN BY VANI KELLEY, COPY WRITER, AND I VERIFY THAT IT IS ACCURATE PROCEDURE CODES 22031 INJECT TRIGGER POINTS 3/> DISPOSITION & COMMUNICATION FOLLOW UP F/UP WITH PHARMACY GRADUATE INTERN (REASON: POST TPI JUNAID NECK AND SHOULDER) ELECTRONICALLY SIGNED BY BERT MAGALLANES MD, MD ON 02/17/2020 AT 04:58 PM EDT DISCLAIMER : THIS IS A VISIT SUMMARY EXTRACTED FROM THE [employer] CHART. IT IS NOT A COPY OF THE [employer] PROGRESS NOTE. [email or web address]
== END ==
LOC: M PAIN 12:15
PROVIDERS: ATTEND Anesthesiology
DX: M79.18 Myalgia, other site (principal)

== ENCOUNTER → 2020-02-27 | Outpatient (CLI) | payer OTHER ==
[~2020-02-27] MED LIST changes: -BUPIVACAINE HCL 0.25% 10ML VIAL As Ordered ONE; -BUPIVACAINE HCL 0.25% 30ML VIAL As Ordered ONE; -TRIAMCINOLONE ACETONIDE SUSP 40 MG/ML VIAL (J3301) As Ordered ONE; -diazePAM 2 MG TAB As Ordered ONE; -oxyCODONE 5MG TAB As Ordered ONE
[2020-02-27 10:27] LABS: HEMOGLOBIN 18.4 g/dl (13.5-17.5); MEAN CORPUSCULAR HEMOGLOBIN 33.3 pg (27.0-33.0); MEAN CORPUSCULAR HGB CONC 34.1 g/dl (32.0-36.5); MEAN CORPUSCULAR VOLUME 97.8 fl (80.0-96.0); PLATELET COUNT, AUTOMATED 209 10^3/uL (150-450); RED BLOOD COUNT 5.52 10^6/uL (4.30-6.10); WHITE BLOOD COUNT 11.2 10^3/uL (4.0-10.0)
[2020-02-27 11:15] LABS: ALBUMIN 3.5 GM/DL (3.2-5.2); ALT/SGPT 68 U/L (12-78); BILIRUBIN,TOTAL 0.8 MG/DL (0.2-1.0); BLOOD UREA NITROGEN 16 MG/DL (7-18); CALCIUM LEVEL 8.7 MG/DL (8.8-10.2); CARBON DIOXIDE LEVEL 30 MEQ/L (21-32); CHLORIDE LEVEL 104 MEQ/L (98-107); CHOLESTEROL LEVEL 143 MG/DL (<200); CHOLESTEROL RISK RATIO 8.411 (<5); CREATININE FOR GFR 1.16 MG/DL (0.70-1.30); GLOMERULAR FILTRATION RATE > 60.0 (>49); GLUCOSE, FASTING 305 MG/DL (70-100); HDL CHOLESTEROL 17 MG/DL (>40); NON-HDL-C 126 MG/DL; POTASSIUM SERUM 4.1 MEQ/L (3.5-5.1); SODIUM LEVEL 139 MEQ/L (136-145); TESTOSTERONE 265 NG/DL (241-827); TOTAL 25(OH) VITAMIN D 20.2 NG/ML (30.0-100.0); TOTAL PROTEIN 7.3 GM/DL (6.4-8.2); TRIGLYCERIDES LEVEL 616 MG/DL (<150)
[2020-02-27 11:21] LABS: HEMOGLOBIN A1c 9.4 %
== END ==
LOC: M LAB 09:45
PROVIDERS: ATTEND Family Medicine
DX: I10 Essential (primary) hypertension (principal); R53.83 Other fatigue; E11.9 Type 2 diabetes mellitus without complications; E03.9 Hypothyroidism, unspecified

== ENCOUNTER → 2020-04-21 | Outpatient (CLI) | payer OTHER | LOC: M PAIN 09:04 | PROVIDERS: ATTEND Family Medicine | DX: M79.18 Myalgia, other site (principal) ==

== ENCOUNTER → 2020-05-05 | Outpatient (CLI) | payer OTHER | LOC: M LABSMTC 12:08 | PROVIDERS: ATTEND Anesthesiology | DX: Z20.828 Contact with and (suspected) exposure to other viral communicable diseases (principal) | CPT/HCPCS: C9803; U0003 ==

== ENCOUNTER → 2020-05-07 | Outpatient (CLI) | payer OTHER ==
[2020-05-07 14:07] LABS: BASO # 0.1 10^3/uL (0.0-0.2); BASO % 0.7 % (0.0-1.0); EOS # 0.3 10^3/uL (0.0-0.5); EOS % 2.5 % (0.0-3.0); HEMATOCRIT 53.7 % (42.0-52.0); HEMOGLOBIN 18.4 g/dl (13.5-17.5); LYMPH % 25.9 % (24.0-44.0); MEAN CORPUSCULAR HEMOGLOBIN 33.7 pg (27.0-33.0); MEAN CORPUSCULAR HGB CONC 34.3 g/dl (32.0-36.5); MEAN CORPUSCULAR VOLUME 98.4 fl (80.0-96.0); MONO # 0.8 10^3/uL (0.0-0.8); NEUTROPHILS # 7.3 10^3/uL (1.5-8.5); NEUTROPHILS % 63.6 % (36.0-66.0); PLATELET COUNT, AUTOMATED 206 10^3/uL (150-450); RED BLOOD COUNT 5.46 10^6/uL (4.30-6.10); WHITE BLOOD COUNT 11.5 10^3/uL (4.0-10.0)
[2020-05-07 14:48] LABS: C REACTIVE PROTEIN QUANTITATIV 1.35 MG/DL (0.00-0.30); ERYTHROCYTE SEDIMENTATION RATE 3 mm/hr (0-20); URIC ACID 4.9 MG/DL (3.5-7.2)
== END ==
LOC: M PLALAB 12:09
PROVIDERS: ATTEND Orthopaedic Surgery
DX: M10.022 Idiopathic gout, left elbow (principal)

== ENCOUNTER → 2020-05-10 | Outpatient (CLI) | payer OTHER ==
[~2020-05-10] MED LIST changes: +BUPIVACAINE HCL 0.25% 10ML VIAL As Ordered ONE; +BUPIVACAINE HCL 0.25% 30ML VIAL As Ordered ONE; +TRIAMCINOLONE ACETONIDE SUSP 40 MG/ML VIAL (J3301) As Ordered ONE; +diazePAM 5 MG TAB As Ordered ONE; +oxyCODONE 5MG TAB As Ordered ONE
== END ==
LOC: M PAIN 09:10
PROVIDERS: ATTEND Anesthesiology
DX: M79.18 Myalgia, other site (principal)
CPT/HCPCS: 20552; G0463; J3301

== ENCOUNTER → 2020-05-21 | Outpatient (CLI) | payer OTHER ==
[~2020-05-21] MED LIST changes: -BUPIVACAINE HCL 0.25% 10ML VIAL As Ordered ONE; -BUPIVACAINE HCL 0.25% 30ML VIAL As Ordered ONE; -TRIAMCINOLONE ACETONIDE SUSP 40 MG/ML VIAL (J3301) As Ordered ONE; -diazePAM 5 MG TAB As Ordered ONE; -oxyCODONE 5MG TAB As Ordered ONE
== END ==
LOC: M PAIN 11:30
PROVIDERS: ATTEND Family Medicine
DX: M79.18 Myalgia, other site (principal)